=== PATIENT | female | born 1960 | race Caucasian/White ===

== ENCOUNTER 2020-12-31 13:41 | Inpatient (IN) | payer OTHER ==
--- OUTSIDE RECORDS SUMMARY | 2020-12-31 13:46 | XMS REPORT | Continuity of Care Document ---
:1960 Author Organization [facility] t Address [address] [place] [address] Care Team Providers Name Role Phone Iam Ruano Primary Care Physician ALFRED TRINIDAD Attending Clinician Unavailable ALFRED TRINIDAD Admitting Clinician Unavailable Payers Payer Name Policy Type Policy Number Effective Date Expiration Date S ource Problems Condition Condition Condition Status Onset Resolution Last Treating Co mments Source Name Details Category Date Date Treatment Clinician Date Pneumonia Pneumonia Disease Active [facility] [address] 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 History of tobacco 2016-08-14 [facility] Smoking Status Start Date Stop Date Source Former smoker 2016-11-15 00:00:00 2016-11-15 00:00:[address] [facility] Medications Ordered Filled Start Stop Current Ordering Indication Dosage Frequency Signature Comments Components Source Medication Medication Date Date Medication? Clinician (SIG) Name Name pregabalin 2017 Yes 300mg Q.5D Take [address] (LYRICA) 6-24 mg by [facility] - 300 MG 16:31: mouth 2 Medical capsule 44 (two) Center times daily. traMADol 2017 Yes 50mg Take [address] (ULTRAM) 50 6-24 by mouth Luke s - mg tablet 16:31: every 8 Medic al 44 (eight) Center hours as needed for Pain. acetaminoph 2017 Yes 1{tbl} Take [address] en-codeine 6-24 tablet by Luke [facility] - (TYLENOL 16:31: mouth Medical #3) 300-30 44 every 6 Center mg per (six) tablet hours as needed for Pain. Dolutegravi Yes 50mg QD Take [address] [facility] (TIVICAY) 6-24 by mouth Luke s - 50 mg Tab 16:31: nightly. Medi thad 44 Center darunavir-c Yes QD Take by [facility] obicistat 6-24 [facility] - (PREZCOBIX) 16:31: nightly. Mt dical 800-150 44 Center mg-mg Tab tiotropium Yes 18ug QD Inhale [address] (SPIRIVA) 6-24 mcg by [facility] - 18 mcg 16:31: mouth via Medica l inhalation 44 inhaler Center capsule daily. albuterol-i Yes 2{puff} Q.5D Inhale [address] pratropium 6-24 puffs by [facility] - (COMBIVENT 16:31: mouth via Me dical RESPIMAT) 44 inhaler 2 Cente r 20-100 (two) mcg/actuati times on Mist daily. inhaler eluxadoline 2017 Yes 100mg QD Take [address] (VIBERZI) 6-24 mg by [facility] - 100 mg Tab 16:31: mouth Medica l 44 daily. Center citalopram Yes 40mg QD Take [address] (CELEXA) 40 6-24 by mouth Luke s - MG tablet 16:31: nightly. Medi thad 44 Center emtricita 2017-0 Yes QD Take by [facility] ne-tenofovi 6-24 mouth [facility] - r alafen 16:31: nightly. Medic al (DESCOVY) 44 Center 200-25 mg Tab Procedures This patient has no known procedures. Results Test Description Test Time Test Comments Results Result Comments Source BASIC METABOLIC PANEL 2020-02-20 08:06:00 Test Item Value Reference Range Interpretation Comme nts SODIUM (test code = NA) 138 MMOL/L 137-145 N POTASSIUM (test code = K) 3.5 MMOL/L 3.5-5.1 N CHLORIDE (test code = CL) 96 MMOL/L 98-107 L CARBON DIOXIDE (test code = CO2) 35 MMOL/L 22-30 H ANION GAP (test code = GAP) 11 MMOL/L 14-24 L GLUCOSE (test code = GLU) 86 MG/DL 74-106 N BLOOD UREA NITROGEN (test code = 69 MG/DL 7-17 H BUN) GLOMERULAR FILTRATION RATE (test 15 Reporting units: ml/min/1.73 code = GFR) m2 (Modified M DRD Formula)Referen ce Range: > or = 60 ml/min/1.7 3 m2 CREATININE (test code = CREAT) 3.20 MG/DL 0.52-1.04 H CALCIUM (test code = CA) 8.5 MG/DL 8.4-10.2 N BASIC METABOLIC [id number] 07:59:00 Test Item Value Reference Range Interpretation Comments SODIUM (test code = NA) 138 MMOL/L 137-145 N POTASSIUM (test code = K) 3.5 MMOL/L 3.5-5.1 N CHLORIDE (test code = CL) 96 MMOL/L 98-107 L CARBON DIOXIDE (test code = CO2) MMOL/L 22-30 GLUCOSE (test code = GLU) MG/DL 74-106 BLOOD UREA NITROGEN (test code = MG/DL 7-17 BUN) GLOMERULAR FILTRATION RATE (test code = GFR) CREATININE (test code = CREAT) MG/DL 0.52-1.04 CALCIUM (test code = CA) MG/DL 8.7-9.7 BASIC METABOLIC [id number] 07:58:00 Test Item Value Reference Range Interpretation Comments SODIUM (test code = NA) 138 MMOL/L 137-145 N POTASSIUM (test code = K) MMOL/L 3.5-5.1 CHLORIDE (test code = CL) 96 MMOL/L 98-107 L CARBON DIOXIDE (test code = CO2) MMOL/L 22-30 GLUCOSE (test code = GLU) MG/DL 74-106 BLOOD UREA NITROGEN (test code = MG/DL 7-17 BUN) GLOMERULAR FILTRATION RATE (test code = GFR) CREATININE (test code = CREAT) MG/DL 0.52-1.04 CALCIUM (test code = CA) MG/DL 8.7-9.7 [id number] 15:18:00 Test Item Value Reference Range Interpretation Comments POTASSIUM (test code = K) 3.5 MMOL/L 3.5-5.1 N BASIC METABOLIC [id number] 07:32:00 Test Item Value Reference Range Interpretation Comments SODIUM (test code = 140 MMOL/L 137-145 N NA) POTASSIUM (test code = 3.2 MMOL/L 3.5-5.1 L K) CHLORIDE (test code = 97 MMOL/L 98-107 L CL) CARBON DIOXIDE (test 36 MMOL/L 22-30 H code = CO2) ANION GAP (test code = 10 MMOL/L 14-24 L GAP) GLUCOSE (test code = 86 MG/DL 74-106 GLU) BLOOD UREA NITROGEN 77 MG/DL 7-17 H (test code = BUN) GLOMERULAR FILTRATION 13 Report ing units: RATE (test code = GFR) ml/mi n/1.73 m2 (Modified MDRD Formula)Referen ce Range: > or = 6 0 ml/min/1.73 m2 CREATININE (test code 3.70 MG/DL 0.52-1.04 H = CREAT) CALCIUM (test code = 8.5 MG/DL 8.4-10.2 N CA) BASIC METABOLIC [id number] 07:25:00 Test Item Value Reference Range Interpretation Comments SODIUM (test code = NA) 140 MMOL/L 137-145 N POTASSIUM (test code = K) 3.2 MMOL/L 3.5-5.1 L CHLORIDE (test code = CL) 97 MMOL/L 98-107 L CARBON DIOXIDE (test code = CO2) MMOL/L 22-30 GLUCOSE (test code = GLU) MG/DL 74-106 BLOOD UREA NITROGEN (test code = MG/DL 7-17 BUN) GLOMERULAR FILTRATION RATE (test code = GFR) CREATININE (test code = CREAT) MG/DL 0.52-1.04 CALCIUM (test code = CA) MG/DL 8.7-9.7 BASIC METABOLIC [id number] 07:24:00 Test Item Value Reference Range Interpretation Comments SODIUM (test code = NA) MMOL/L 137-145 POTASSIUM (test code = K) MMOL/L 3.5-5.1 CHLORIDE (test code = CL) 97 MMOL/L 98-107 L CARBON DIOXIDE (test code = CO2) MMOL/L 22-30 GLUCOSE (test code = GLU) MG/DL 74-106 BLOOD UREA NITROGEN (test code = MG/DL 7-17 BUN) GLOMERULAR FILTRATION RATE (test code = GFR) CREATININE (test code = CREAT) MG/DL 0.52-1.04 CALCIUM (test code = CA) MG/DL 8.7-9.7 ARTERIAL BLOOD [id number] 16:01:00 Test Item Value Reference Range Interpretation Comments ARTERIAL BLOOD GAS PH 7.44 mmHg 7.35-7.45 N (test code = PHA) ARTERIAL BLOOD GAS PCO2 50.4 mmHg 35.0-45.0 HH (test code = PCO2A) ARTERIAL BLOOD GAS PO2 58.3 mmol/L 80.0-100.0 L (test code = PO2A) BICARBONATE TOTAL HCO3 33.3 mmol/L 20.0-26.0 H (test code = HCO3) BASE EXCESS (test code 7.6 mmol/L -3.0-3.0 H = JOSÉ) ABG O2 SATURATION (test 90.8 % 95.0-100.0 L All critical values code = SATA) report to and readback by DR. ARAUJO by GRACIA DUPONT at 02/18/2020 4:00:15 PM ABG DELIVERY (test code RM AIR = NANDINI) ABG TEMPERATURE (test 37.0 C >37 code = TEMPA) ABG SITE (test code = LR SITEA) ALLENS TEST (test code Y CHECK = ALLENS) FIO2 (test code = 21 % COHBGFFIO2) - CT CHEST W/O [id number] 15:30:00 Patient Name: ROBERT MATHEWS Unit No: [id number] EXAMS: CPT CODE: [id number] CT CHEST W/O CONTRAST 60228 EXAM: - CT CHEST W/O CONTRAST LOCATION: C3 HISTORY: pna TECHNIQUE: Axial tomograms through the chest were obtained without intravenous contrast. Coronal and sagittal reformatted images are provided. This exam was performed according to our departmental dose-optimization program, which includes automated exposure control, adjustment of the mA and/or kV according to patient size and/or use of iterative reconstruction technique. COMPARISON: None available time of interpretation. FINDINGS: LUNGS/PLEURA: Scattered areas of subsegmental atelectasis noted. No effusions. MEDIASTINUM: There is no pericardial effusion. The aorta tapers normally. The trachea is unremarkable. The esophagus is grossly unremarkable. LYMPHADENOPATHY: There is no mediastinal, hilar, or axillary adenopathy. VISUALIZED ABDOMEN: Unremarkable. BONES: No acute osseous findings. SOFT TISSUES: Unremarkable. IMPRESSION: No pneumonia. Scattered areas of subpleural subsegmental atelectasis. at 1530 Reported and signed by: Bertrand Taylor MD CC: Lian Araujo MD; Rey Benjamin MD Technologist: Cosme Roth RT(R) CTDI: DLP: Trnscrpt: 02/18/2020 (1530) t.[id number].[id number] [facility] NAME: ROBERT MATHEWS Chavez PHYS: [place] [address] : 1960 AGE: 59 SEX: F LOC: Z.436 A PHONE #: [phone] EXAM DATE: 02/18/2020 STATUS: ADM IN FAX #: [phone] RAD #: D/C DT PAGE 1 Signed Report Patient Name: ROBERT MATHEWS Unit No: [id number] EXAMS: CPT CODE: [id number] CT CHEST W/O CONTRAST 20112 <Continued> Orig Print D/T: S: 02/18/2020 (5404) [facility] NAME: ROBERT MATHEWS PHYS: [place] [address] : 1960 AGE: 59 SEX: F LOC: Z.436 A PHONE #: [phone] EXAM DATE: 02/18/2020 STATUS: ADM IN FAX #: [phone] RAD #: D/C DT PAGE 2 Signed ReportBASIC METABOLIC [id number] 14:22:00 Test Item Value Reference Range Interpretation Comments SODIUM (test code = 139 MMOL/L 137-145 N NA) POTASSIUM (test code = 3.8 MMOL/L 3.5-5.1 N K) CHLORIDE (test code = 98 MMOL/L 98-107 N CL) CARBON DIOXIDE (test 32 MMOL/L 22-30 H code = CO2) ANION GAP (test code = 13 MMOL/L 14-24 L GAP) GLUCOSE (test code = 104 MG/DL 74-106 GLU) BLOOD UREA NITROGEN 80 MG/DL 7-17 H (test code = BUN) GLOMERULAR FILTRATION 12 Report ing units: RATE (test code = GFR) ml/mi n/1.73 m2 (Modified MDRD Formula)Referen ce Range: > or = 6 0 ml/min/1.73 m2 CREATININE (test code 3.80 MG/DL 0.52-1.04 H = CREAT) CALCIUM (test code = 8.3 MG/DL 8.4-10.2 L CA) BASIC METABOLIC [id number] 14:19:00 Test Item Value Reference Range Interpretation Comments SODIUM (test code = NA) 139 MMOL/L 137-145 N POTASSIUM (test code = K) 3.8 MMOL/L 3.5-5.1 N CHLORIDE (test code = CL) 98 MMOL/L 98-107 N CARBON DIOXIDE (test code = CO2) MMOL/L 22-30 GLUCOSE (test code = GLU) MG/DL 74-106 BLOOD UREA NITROGEN (test code = MG/DL 7-17 BUN) GLOMERULAR FILTRATION RATE (test code = GFR) CREATININE (test code = CREAT) MG/DL 0.52-1.04 CALCIUM (test code = CA) MG/DL 8.7-9.7 BASIC METABOLIC [id number] 14:18:00 Test Item Value Reference Range Interpretation Comments SODIUM (test code = NA) MMOL/L 137-145 POTASSIUM (test code = K) MMOL/L 3.5-5.1 CHLORIDE (test code = CL) 98 MMOL/L 98-107 N CARBON DIOXIDE (test code = CO2) MMOL/L 22-30 GLUCOSE (test code = GLU) MG/DL 74-106 BLOOD UREA NITROGEN (test code = MG/DL 7-17 BUN) GLOMERULAR FILTRATION RATE (test code = GFR) CREATININE (test code = CREAT) MG/DL 0.52-1.04 CALCIUM (test code = CA) MG/DL 8.7-9.7 BASIC METABOLIC [id number] 08:14:00 Test Item Value Reference Range Interpretation Comments SODIUM (test code = 138 MMOL/L 137-145 N NA) POTASSIUM (test code = 2.8 MMOL/L 3.5-5.1 LL NELY D TO Ghassan Pettit) Ufarcia& READBA CK ON 02/18/20 AT 081 4 BY Toribio De Leon CHLORIDE (test code = 96 MMOL/L 98-107 L CL) CARBON DIOXIDE (test 32 MMOL/L 22-30 H code = CO2) ANION GAP (test code = 13 MMOL/L 14-24 L GAP) GLUCOSE (test code = 83 MG/DL 74-106 N GLU) BLOOD UREA NITROGEN 84 MG/DL 7-17 H (test code = BUN) GLOMERULAR FILTRATION 12 Report ing units: RATE (test code = GFR) ml/mi n/1.73 m2 (Modified MDRD Formula)Referen ce Range: > or = 6 0 ml/min/1.73 m2 CREATININE (test code 3.80 MG/DL 0.52-1.04 H = CREAT) CALCIUM (test code = 8.3 MG/DL 8.4-10.2 L CA) CBC W/AUTO [id number] 07:23:00 Test Item Value Reference Range Interpretation Comments WHITE BLOOD CELL (test code = 4.0 K/MM3 3.8-9.8 N WBC) RED BLOOD CELL (test code = 3.59 M/MM3 3.58-4.97 N RBC) HEMOGLOBIN (test code = HGB) 10.7 G/DL 11.2-14.9 L HEMATOCRIT (test code = HCT) 34.6 % 33.2-43.5 N MEAN CELL VOLUME (test code = 96 fL 80.7-99.1 N MCV) MEAN CELL HGB (test code = MCH) 29.8 pg 27.0-34.1 N MEAN CELL HGB CONCETRATION 30.9 % 32.2-35.7 L (test code = MCHC) RED CELL DISTRIBUTION WIDTH 15.0 % 12.1-15.2 N (test code = RDW) PLATELET COUNT (test code = 92 K/MM3 129-368 L PLT) MEAN PLATELET VOLUME (test code 12.8 fl 7.4-10.4 H = MPV) NEUTROPHIL % (test code = NT%) 56.8 % 43-75 N IMMATURE GRANULOCYTE % (test 0.3 % 0.0-2.0 N code = IG%) LYMPHOCYTE % (test code = LY%) 26.1 % 14-44 N MONOCYTE % (test code = MO%) 10.0 % 4-13 N EOSINOPHIL % (test code = EO%) 6.0 % 0-6 N BASOPHIL % (test code = BA%) 0.8 % 0-2 N NUCLEATED RBC % (test code = 0.0 % 0-1.0 N NRBC%) NEUTROPHIL # (test code = NT#) 2.27 K/mm3 2.0-7.6 N IMMATURE GRANULOCYTE # (test 0.01 x10 3/uL 0-0.03 N code = IG#) LYMPHOCYTE # (test code = LY#) 1.04 K/mm3 1.0-3.8 N MONOCYTE # (test code = MO#) 0.40 K/mm3 0.1-0.8 N EOSINOPHIL # (test code = EO#) 0.24 K/mm3 0.0-0.2 H BASOPHIL # (test code = BA#) 0.03 K/mm3 0.0-0.2 N NUCLEATED RBC # (test code = 0.00 K/mm3 0.0-0.1 N NRBC#) BASIC METABOLIC [id number] 06:25:00 Test Item Value Reference Range Interpretation Comments SODIUM (test code = 139 MMOL/L 137-145 N NA) POTASSIUM (test code = 3.5 MMOL/L 3.5-5.1 N K) CHLORIDE (test code = 98 MMOL/L 98-107 N CL) CARBON DIOXIDE (test 34 MMOL/L 22-30 H code = CO2) ANION GAP (test code = 11 MMOL/L 14-24 L GAP) GLUCOSE (test code = 90 MG/DL 74-106 N GLU) BLOOD UREA NITROGEN 85 MG/DL 7-17 H (test code = BUN) GLOMERULAR FILTRATION 10 Report ing units: RATE (test code = GFR) ml/mi n/1.73 m2 (Modified MDRD Formula)Referen ce Range: > or = 6 0 ml/min/1.73 m2 CREATININE (test code 4.50 MG/DL 0.52-1.04 H = CREAT) CALCIUM (test code = 8.1 MG/DL 8.4-10.2 L CA) BASIC METABOLIC [id number] 06:20:00 Test Item Value Reference Range Interpretation Comments SODIUM (test code = NA) 139 MMOL/L 137-145 N POTASSIUM (test code = K) 3.5 MMOL/L 3.5-5.1 N CHLORIDE (test code = CL) 98 MMOL/L 98-107 N CARBON DIOXIDE (test code = CO2) MMOL/L 22-30 GLUCOSE (test code = GLU) MG/DL 74-106 BLOOD UREA NITROGEN (test code = MG/DL 7-17 BUN) GLOMERULAR FILTRATION RATE (test code = GFR) CREATININE (test code = CREAT) MG/DL 0.52-1.04 CALCIUM (test code = CA) MG/DL 8.7-9.7 VENOUS BLOOD [id number] 11:44:00 Test Item Value Reference Range Interpretation Comments VENOUS BLOOD GAS PH (test code = 7.29 7.35-7.45 L PHV) VENOUS BLOOD GAS PCO2 (test code = 65.4 mmHg 35.0-45.0 HH PCO2V) VENOUS BLOOD GAS PO2 (test code = 68 mmHg <40 H PO2V) VBG HCO3 (test code = HCO3V) 31 meq/L 20-26 H VBG BASE EXCESS (test code = LIEN) 1.9 MMOL/L -3.0-3.0 N VENOUS BLOOD GAS OS SAT. (test 91 % 72-77 H code = O2SATV) VENOUS BLOOD GAS DELIVERY (test N/C code = DELV) VENOUS BLOOD GAS TEMP (test code = 37.0 C TEMPV) VENOUS BLOOD GAS SITE (test code = RB SITEV) FIO2 (test code = COHBGFFIO2) 28 % VENOUS BLOOD [id number] 08:29:00 Test Item Value Reference Range Interpretation Comments VENOUS BLOOD GAS PH (test code = 7.26 7.35-7.45 L PHV) VENOUS BLOOD GAS PCO2 (test code = 68.7 mmHg 35.0-45.0 HH PCO2V) VENOUS BLOOD GAS PO2 (test code = 64 mmHg <40 H PO2V) VBG HCO3 (test code = HCO3V) 30 meq/L 20-26 H VBG BASE EXCESS (test code = LIEN) 1.0 MMOL/L -3.0-3.0 N VENOUS BLOOD GAS OS SAT. (test 89 % 72-77 H code = O2SATV) VENOUS BLOOD GAS DELIVERY (test BIPAP code = DELV) VBG VENT MODE (test code = MODEV) AVAPS ZAIDA. BLOOD GAS RESP. RATE (test 24.0 /min code = RRV) VBG TIDAL VOLUME (test code = TVV) 440 mL VENOUS BLOOD GAS TEMP (test code = 37.0 C TEMPV) VENOUS BLOOD GAS SITE (test code = LINE SITEV) FIO2 (test code = COHBGFFIO2) 21 % - US RETROPERITONEAL [id number] 07:56:00 Patient Name: ROBERT MATHEWS Unit No: [id number] EXAMS: CPT CODE: [id number] US RETROPERITONEAL COM [id number] EXAM: - US RETROPERITONEAL COM HISTORY: HYPERKALEMIA/ RENAL DISEASE R 16 TECHNIQUE: Grayscale B-mode and color Doppler sonographic images of the kidneys were performed. Dedicated grayscale B-mode and color Doppler pelvic imaging of the urinary bladder was also performed. COMPARISON: None available time of inter pretation. FINDINGS: Limited evaluation due to patient body habitus and overlying bowel gas. The right kidney measures 10.3cm and the left measures 11.6 cm in length. There is no obvious cystic or solid renal mass lesion visualized. No h ydronephrosis or obvious nephrolithiasis. There is normal renal cortical thickness. Minimallyincreased cortical echogenicity. The urinary bladder volume is decompressed by Burrows catheterization, thus limiting evaluation. IMPRESSION: Limited evaluation due to patient body habitus and overlying bowel gas. 1. No evidence of hydronephrosis, nephrolithiasis or suspicious renal mass. 2. Minimally increased cortical echogenicity, suggestive of intrinsic renal parenchymal disease. at 0756 Reported and signed by: Apoorva Mckeon MD CC: Christian Espino MD; Troy Randall Technologist: DALI Early(A,OB) Transcrpt Date/Tm/Trnsp: 02/16/2020 (0756) [id number] Orig Print D/T: S: 02/16/2020 (0759) [facility] NAME: ROBERT MATHEWS [address] PHYS: [place] [address] : 1960 AGE: 59 SEX: F LOC: Z.SI09 A PHONE #: [phone] EXAM DATE: 02/15/2020 STATUS: ADM IN FAX #: [phone] RADIOLOGY NO: PAGE 1Signed ReportBASIC METABOLIC [id number] 07:37:00 Test Item Value Reference Range Interpretation Comments SODIUM (test code = 139 MMOL/L 137-145 N NA) POTASSIUM (test code = 4.2 MMOL/L 3.5-5.1 N K) CHLORIDE (test code = 98 MMOL/L 98-107 N CL) CARBON DIOXIDE (test 31 MMOL/L 22-30 H code = CO2) ANION GAP (test code = 14 MMOL/L 14-24 N GAP) GLUCOSE (test code = 81 MG/DL 74-106 GLU) BLOOD UREA NITROGEN 93 MG/DL 7-17 H (test code = BUN) GLOMERULAR FILTRATION 7 Report ing units: RATE (test code = GFR) ml/mi n/1.73 m2 (Modified MDRD Formula)Referen ce Range: > or = 6 0 ml/min/1.73 m2 CREATININE (test code 5.90 MG/DL 0.52-1.04 H = CREAT) CALCIUM (test code = 7.5 MG/DL 8.4-10.2 L CA) [id number] 07:37:00 Test Item Value Reference Range Interpretation Comments MAGNESIUM (test code = MAG) 2.6 MG/DL 1.6-2.3 H BASIC METABOLIC [id number] 07:06:00 Test Item Value Reference Range Interpretation Comments SODIUM (test code = NA) 139 MMOL/L 137-145 N POTASSIUM (test code = K) 4.2 MMOL/L 3.5-5.1 N CHLORIDE (test code = CL) 98 MMOL/L 98-107 N CARBON DIOXIDE (test code = CO2) MMOL/L 22-30 GLUCOSE (test code = GLU) MG/DL 74-106 BLOOD UREA NITROGEN (test code = MG/DL 7-17 BUN) GLOMERULAR FILTRATION RATE (test code = GFR) CREATININE (test code = CREAT) MG/DL 0.52-1.04 CALCIUM (test code = CA) MG/DL 8.7-9.7 [id number] 07:06:00 Test Item Value Reference Range Interpretation Comments MAGNESIUM (test code = MAG) MG/DL 1.6-2.3 COMPREHENSIVE METABOLIC [id number] 18:24:00 Test Item Value Reference Range Interpretation Comments SODIUM (test code = NA) 140 MMOL/L 137-145 N POTASSIUM (test code = 4.8 MMOL/L 3.5-5.1 N K) CHLORIDE (test code = 99 MMOL/L 98-107 N CL) CARBON DIOXIDE (test 32 MMOL/L 22-30 H code = CO2) ANION GAP (test code = 14 MMOL/L 14-24 N GAP) GLUCOSE (test code = 121 MG/DL 74-106 H GLU) BLOOD UREA NITROGEN 88 MG/DL 7-17 H (test code = BUN) GLOMERULAR FILTRATION 7 Report ing units: RATE (test code = GFR) ml/mi n/1.73 m2 (Modified MDRD Formula)Referen ce Range: > or = 6 0 ml/min/1.73 m2 CREATININE (test code = 6.30 MG/DL 0.52-1.04 H CREAT) TOTAL PROTEIN (test 6.6 G/DL 6.3-8.2 N code = PROT) ALBUMIN (test code = 3.9 G/DL 3.5-5.0 N ALB) CALCIUM (test code = 7.8 MG/DL 8.4-10.2 L CA) BILIRUBIN TOTAL (test 0.4 MG/DL 0.2-1.3 N code = BILT) SGOT/AST (test code = 53 UNITS/L 14-36 H AST) SGPT/ALT (test code = 31 UNITS/L <35 ALT) ALKALINE PHOSPHATASE 72 UNITS/L 38-126 N (test code = ALKP) [id number] 18:24:00 Test Item Value Reference Range Interpretation Comments MAGNESIUM (test code = MAG) 2.7 MG/DL 1.6-2.3 H COMPREHENSIVE METABOLIC [id number] 18:13:00 Test Item Value Reference Range Interpretation Comments SODIUM (test code = NA) 140 MMOL/L 137-145 N POTASSIUM (test code = K) 4.8 MMOL/L 3.5-5.1 N CHLORIDE (test code = CL) 99 MMOL/L 98-107 N CARBON DIOXIDE (test code = CO2) MMOL/L 22-30 GLUCOSE (test code = GLU) MG/DL 74-106 BLOOD UREA NITROGEN (test code = MG/DL 7-17 BUN) GLOMERULAR FILTRATION RATE (test code = GFR) CREATININE (test code = CREAT) MG/DL 0.52-1.04 TOTAL PROTEIN (test code = PROT) G/DL 6.3-8.2 ALBUMIN (test code = ALB) 3.9 G/DL 3.5-5.0 N CALCIUM (test code = CA) MG/DL 8.7-9.7 BILIRUBIN TOTAL (test code = BILT) MG/DL 0.2-1.3 SGOT/AST (test code = AST) UNITS/L 15-37 SGPT/ALT (test code = ALT) UNITS/L <35 ALKALINE PHOSPHATASE (test code = UNITS/L 38-126 ALKP) [id number] 18:13:00 Test Item Value Reference Range Interpretation Comments MAGNESIUM (test code = MAG) MG/DL 1.6-2.3 COMPREHENSIVE METABOLIC [id number] 18:12:00 Test Item Value Reference Range Interpretation Comments SODIUM (test code = NA) MMOL/L 137-145 POTASSIUM (test code = K) MMOL/L 3.5-5.1 CHLORIDE (test code = CL) 99 MMOL/L 98-107 N CARBON DIOXIDE (test code = CO2) MMOL/L 22-30 GLUCOSE (test code = GLU) MG/DL 74-106 BLOOD UREA NITROGEN (test code = MG/DL 7-17 BUN) GLOMERULAR FILTRATION RATE (test code = GFR) CREATININE (test code = CREAT) MG/DL 0.52-1.04 TOTAL PROTEIN (test code = PROT) G/DL 6.3-8.2 ALBUMIN (test code = ALB) 3.9 G/DL 3.5-5.0 N CALCIUM (test code = CA) MG/DL 8.7-9.7 BILIRUBIN TOTAL (test code = BILT) MG/DL 0.2-1.3 SGOT/AST (test code = AST) UNITS/L 15-37 SGPT/ALT (test code = ALT) UNITS/L <35 ALKALINE PHOSPHATASE (test code = UNITS/L 38-126 ALKP) [id number] 18:12:00 Test Item Value Reference Range Interpretation Comments MAGNESIUM (test code = MAG) MG/DL 1.6-2.3 VENOUS BLOOD [id number] 17:48:00 Test Item Value Reference Range Interpretation Comments VENOUS BLOOD GAS PH (test code = 7.26 7.35-7.45 L PHV) VENOUS BLOOD GAS PCO2 (test code = 68.7 mmHg 35.0-45.0 HH PCO2V) VENOUS BLOOD GAS PO2 (test code = 64 mmHg <40 H PO2V) VBG HCO3 (test code = HCO3V) 30 meq/L 20-26 H VBG BASE EXCESS (test code = LIEN) 1.0 MMOL/L -3.0-3.0 N VENOUS BLOOD GAS OS SAT. (test 89 % 72-77 H code = O2SATV) VENOUS BLOOD GAS DELIVERY (test BIPAP code = DELV) ZAIDA. BLOOD GAS RESP. RATE (test 24.0 /min code = RRV) VBG TIDAL VOLUME (test code = TVV) 440 mL VENOUS BLOOD GAS TEMP (test code = 37.0 C TEMPV) VENOUS BLOOD GAS SITE (test code = LINE SITEV) FIO2 (test code = COHBGFFIO2) 21 % COMPREHENSIVE METABOLIC [id number] 15:16:00 Test Item Value Reference Range Interpretation Comments SODIUM (test code = NA) 141 MMOL/L 137-145 N POTASSIUM (test code = 5.4 MMOL/L 3.5-5.1 H K) CHLORIDE (test code = 102 MMOL/L 98-107 N CL) CARBON DIOXIDE (test 26 MMOL/L 22-30 N code = CO2) ANION GAP (test code = 18 MMOL/L 14-24 N GAP) GLUCOSE (test code = 59 MG/DL 74-106 L GLU) BLOOD UREA NITROGEN 94 MG/DL 7-17 H (test code = BUN) GLOMERULAR FILTRATION 7 Report ing units: RATE (test code = GFR) ml/mi n/1.73 m2 (Modified MDRD Formula)Referen ce Range: > or = 6 0 ml/min/1.73 m2 CREATININE (test code = 6.50 MG/DL 0.52-1.04 H CREAT) TOTAL PROTEIN (test 7.0 G/DL 6.3-8.2 N code = PROT) ALBUMIN (test code = 4.1 G/DL 3.5-5.0 N ALB) CALCIUM (test code = 8.2 MG/DL 8.4-10.2 L CA) BILIRUBIN TOTAL (test 0.4 MG/DL 0.2-1.3 N code = BILT) SGOT/AST (test code = 66 UNITS/L 14-36 H AST) SGPT/ALT (test code = 38 UNITS/L <35 ALT) ALKALINE PHOSPHATASE 80 UNITS/L 38-126 N (test code = ALKP) COMPREHENSIVE METABOLIC [id number] 15:09:00 Test Item Value Reference Range Interpretation Comments SODIUM (test code = NA) 141 MMOL/L 137-145 N POTASSIUM (test code = K) 5.4 MMOL/L 3.5-5.1 H CHLORIDE (test code = CL) 102 MMOL/L 98-107 N CARBON DIOXIDE (test code = CO2) MMOL/L 22-30 GLUCOSE (test code = GLU) MG/DL 74-106 BLOOD UREA NITROGEN (test code = MG/DL 7-17 BUN) GLOMERULAR FILTRATION RATE (test code = GFR) CREATININE (test code = CREAT) MG/DL 0.52-1.04 TOTAL PROTEIN (test code = PROT) G/DL 6.3-8.2 ALBUMIN (test code = ALB) 4.1 G/DL 3.5-5.0 N CALCIUM (test code = CA) MG/DL 8.7-9.7 BILIRUBIN TOTAL (test code = BILT) MG/DL 0.2-1.3 SGOT/AST (test code = AST) UNITS/L 15-37 SGPT/ALT (test code = ALT) UNITS/L <35 ALKALINE PHOSPHATASE (test code = UNITS/L 38-126 ALKP) COMPREHENSIVE METABOLIC [id number] 15:08:00 Test Item Value Reference Range Interpretation Comments SODIUM (test code = NA) MMOL/L 137-145 POTASSIUM (test code = K) MMOL/L 3.5-5.1 CHLORIDE (test code = CL) MMOL/L 98-107 CARBON DIOXIDE (test code = CO2) MMOL/L 22-30 GLUCOSE (test code = GLU) MG/DL 74-106 BLOOD UREA NITROGEN (test code = MG/DL 7-17 BUN) GLOMERULAR FILTRATION RATE (test code = GFR) CREATININE (test code = CREAT) MG/DL 0.52-1.04 TOTAL PROTEIN (test code = PROT) G/DL 6.3-8.2 ALBUMIN (test code = ALB) 4.1 G/DL 3.5-5.0 N CALCIUM (test code = CA) MG/DL 8.7-9.7 BILIRUBIN TOTAL (test code = BILT) MG/DL 0.2-1.3 SGOT/AST (test code = AST) UNITS/L 15-37 SGPT/ALT (test code = ALT) UNITS/L <35 ALKALINE PHOSPHATASE (test code = UNITS/L 38-126 ALKP) ARTERIAL BLOOD [id number] 15:00:00 Test Item Value Reference Range Interpretation Comments ARTERIAL BLOOD GAS PH 7.20 mmHg 7.35-7.45 LL (test code = PHA) ARTERIAL BLOOD GAS PCO2 79.7 mmHg 35.0-45.0 HH (test code = PCO2A) ARTERIAL BLOOD GAS PO2 82.6 mmol/L 80.0-100.0 N (test code = PO2A) BICARBONATE TOTAL HCO3 30.1 mmol/L 20.0-26.0 H (test code = HCO3) BASE EXCESS (test code -0.5 mmol/L -3.0-3.0 N = JOSÉ) ABG O2 SATURATION (test 93.1 % 95.0-100.0 L All critical values code = SATA) report to and readback by DR GARCIA by MARIE CH57 at 02/15/2020 3:00:14 PM ABG DELIVERY (test code BIPAP = NANDINI) ABG VENT RESP RATE 24.0 /MIN (test code = RRA) ABG PEEP (test code = 10.0 cmH2O PEEPA) ABG PRESSURE SUPPORT 20 cmH2O (test code = PSABG) ABG TEMPERATURE (test 37.0 C >37 code = TEMPA) ABG SITE (test code = RR SITEA) ALLENS TEST (test code Y CHECK = ALLENS) FIO2 (test code = 28 % COHBGFFIO2) DRUGS OF ABUSE SCREEN [id number] 10:11:00 Test Item Value Reference Range Interpretation Comments UR COCAINE (test code = NEGATIVE NEGATIVE Cut off Value: 300 COCAU) ng/mL UR CANNABINOIDS (THC) NEGATIVE NEGATIVE Cut of f Value: 50 (test code = CANU) ng/mL UR AMPHETAMINE (test code NEGATIVE NEGATIVE Cu t off Value: 1000 = AMPHU) ng/mL UR BARBITURATE QUAL (test NEGATIVE NEGATIVE Cu t off Value: 200 code = BARBQLU) ng/mL UR BENZODIAZEPINE (test NEGATIVE NEGATIVE Cut off Value: 200 code = BENZU) ng/mL UR OPIATES QUAL (test code NEGATIVE NEGATIVE C ut off Value: 300 = OPIAQLU) ng/mL UR PHENCYCLIDINE (PCP) NEGATIVE NEGATIVE Cut o ff Value: 25 (test code = PHENCU) ng/mL DRUGS OF ABUSE SCREEN [id number] 10:10:00 Test Item Value Reference Range Interpretation Comments UR COCAINE (test code = NEGATIVE NEGATIVE Cut off Value: 300 COCAU) ng/mL UR CANNABINOIDS (THC) NEGATIVE NEGATIVE Cut of f Value: 50 (test code = CANU) ng/mL UR AMPHETAMINE (test code NEGATIVE NEGATIVE Cu t off Value: 1000 = AMPHU) ng/mL UR BARBITURATE QUAL (test NEGATIVE NEGATIVE Cu t off Value: 200 code = BARBQLU) ng/mL UR BENZODIAZEPINE (test NEGATIVE NEGATIVE Cut off Value: 200 code = BENZU) ng/mL UR OPIATES QUAL (test code NEGATIVE = OPIAQLU) UR PHENCYCLIDINE (PCP) NEGATIVE (test code = PHENCU) DRUGS OF ABUSE SCREEN [id number] 10:09:00 Test Item Value Reference Range Interpretation Comments UR COCAINE (test code = NEGATIVE COCAU) UR CANNABINOIDS (THC) NEGATIVE (test code = CANU) UR AMPHETAMINE (test code NEGATIVE NEGATIVE Cu t off Value: 1000 = AMPHU) ng/mL UR BARBITURATE QUAL (test NEGATIVE NEGATIVE Cu t off Value: 200 code = BARBQLU) ng/mL UR BENZODIAZEPINE (test NEGATIVE NEGATIVE Cut off Value: 200 code = BENZU) ng/mL UR OPIATES QUAL (test code NEGATIVE = OPIAQLU) UR PHENCYCLIDINE (PCP) NEGATIVE (test code = PHENCU) DRUGS OF ABUSE SCREEN [id number] 10:09:00 Test Item Value Reference Range Interpretation Comments UR COCAINE (test code = NEGATIVE COCAU) UR CANNABINOIDS (THC) NEGATIVE NEGATIVE Cut of f Value: 50 (test code = CANU) ng/mL UR AMPHETAMINE (test code NEGATIVE NEGATIVE Cu t off Value: 1000 = AMPHU) ng/mL UR BARBITURATE QUAL (test NEGATIVE NEGATIVE Cu t off Value: 200 code = BARBQLU) ng/mL UR BENZODIAZEPINE (test NEGATIVE NEGATIVE Cut off Value: 200 code = BENZU) ng/mL UR OPIATES QUAL (test code NEGATIVE = OPIAQLU) UR PHENCYCLIDINE (PCP) NEGATIVE (test code = PHENCU) DRUGS OF ABUSE SCREEN [id number] 10:08:00 Test Item Value Reference Range Interpretation Comments UR COCAINE (test code = NEGATIVE COCAU) UR CANNABINOIDS (THC) NEGATIVE (test code = CANU) UR AMPHETAMINE (test code NEGATIVE NEGATIVE Cu t off Value: 1000 = AMPHU) ng/mL UR BARBITURATE QUAL (test NEGATIVE NEGATIVE Cu t off Value: 200 code = BARBQLU) ng/mL UR BENZODIAZEPINE (test NEGATIVE code = BENZU) UR OPIATES QUAL (test code NEGATIVE = OPIAQLU) UR PHENCYCLIDINE (PCP) NEGATIVE (test code = PHENCU) [id number] 09:57:00 Test Item Value Reference Range Interpretation Comments MAGNESIUM (test code = MAG) 2.9 MG/DL 1.6-2.3 H ARTERIAL BLOOD [id number] 07:13:00 Test Item Value Reference Range Interpretation Comments ARTERIAL BLOOD GAS PH 7.15 mmHg 7.35-7.45 LL (test code = PHA) ARTERIAL BLOOD GAS PCO2 94.4 mmHg 35.0-45.0 HH (test code = PCO2A) ARTERIAL BLOOD GAS PO2 91.5 mmol/L 80.0-100.0 N (test code = PO2A) BICARBONATE TOTAL HCO3 31.9 mmol/L 20.0-26.0 H (test code = HCO3) BASE EXCESS (test code -0.2 mmol/L -3.0-3.0 N = JOSÉ) ABG O2 SATURATION (test 93.9 % 95.0-100.0 L All critical values code = SATA) report to and readback by DR LOPES by MARIECHMiguel at 02/15/2020 7:12: 29 AM ABG DELIVERY (test code BIPAP = NANDINI) ABG VENT RESP RATE 18.0 /MIN (test code = RRA) ABG PEEP (test code = 8.0 cmH2O PEEPA) ABG PRESSURE SUPPORT 16 cmH2O (test code = PSABG) ABG TEMPERATURE (test 37.0 C >37 code = TEMPA) ABG SITE (test code = RR SITEA) ALLENS TEST (test code Y CHECK = ALLENS) FIO2 (test code = 40 % COHBGFFIO2) BASIC METABOLIC [id number] 06:26:00 Test Item Value Reference Range Interpretation Comments SODIUM (test code = 138 MMOL/L 137-145 N NA) POTASSIUM (test code = 5.7 MMOL/L 3.5-5.1 H K) CHLORIDE (test code = 99 MMOL/L 98-107 N CL) CARBON DIOXIDE (test 31 MMOL/L 22-30 H code = CO2) ANION GAP (test code = 14 MMOL/L 14-24 N GAP) GLUCOSE (test code = 142 MG/DL 74-106 H GLU) BLOOD UREA NITROGEN 92 MG/DL 7-17 H (test code = BUN) GLOMERULAR FILTRATION 6 Report ing units: RATE (test code = GFR) ml/mi n/1.73 m2 (Modified MDRD Formula)Referen ce Range: > or = 6 0 ml/min/1.73 m2 CREATININE (test code 6.60 MG/DL 0.52-1.04 H = CREAT) CALCIUM (test code = 8.1 MG/DL 8.4-10.2 L CA) CREATINE KINASE (CK)2020-02-15 06:26:00 Test Item Value Reference Range Interpretation Comments CREATINE KINASE (CK) (test code = 47 UNITS/L 30-135 N CK) [id number] 06:26:00 Test Item Value Reference Range Interpretation Comments MAGNESIUM (test code = MAG) 2.9 MG/DL 1.6-2.3 H [id number] 06:26:00 Test Item Value Reference Range Interpretation Comments TROPONIN-I (test code = TROPI) 0.030 NG/ML 0.012-0.033 LIPID PROFILE (CORONARY RISK)2020-02-15 06:26:00 Test Item Value Reference Range Interpretation Comments TRIGLYCERIDES (test 47 MG/DL TRIGLYCE RIDES code = TRIG) REFERENCE RANGE:Normal: < 150 mg/dLBorderline High: 150-199 mg/dLHi gh: 200-499 mg/dLVe ry High: >=500 mg/ dL CHOLESTEROL (test code 116 MG/DL <200 = CHOL) HDL CHOLESTEROL (test 64 MG/DL 40-59 H code = HDL) LIPOPROTEIN LDL (test 36 MG/DL 0-99 N code = LDL) OPTIMAL........ .<100 mg/dLNEAR OPTIMAL/ABOVE OPTIMAL........ .100-12 9 mg/dL BORDERLINE HIGH.........13 0-159 mg/dL HIGH.........16 0-189 mg/dL VERY HIGH...... ...>/= 190 mg/dL GLYCOSYLATED HEMOGLOBIN [id number] 06:26:00 Test Item Value Reference Range Interpretation Comments GLYCOSYLATED 4.8 % 4.8-5.9 N Any condition t hat HEMOGLOBIN (HA1C) shortens e rythocyte (test code = GLYHGB) surviva l or decreasesmean erythrocyte age (e.g., recovery from a cute blood loss,hemolytic anemia) will falsely lo wer HGBA1c resultsregardle ss of the method used. H GBA1c results from [facility] HbSS, HbCC, and HbSc must be interpreted with cautiongiven th e pathological pr ocesses, including anemia,increase d red cell turnover, trans fusion requirements, thatadversely i mpact HGBA1c as a mar ker of long-term glycemiccontrol . Alternative for ms of testing such as fructosaminesho uld be considered for these patients. MEAN BLOOD GLUCOSE 91 MG/DL 70-110 N (test code = MBG) BASIC METABOLIC [id number] 06:21:00 Test Item Value Reference Range Interpretation Comments SODIUM (test code = 138 MMOL/L 137-145 N NA) POTASSIUM (test code = 5.7 MMOL/L 3.5-5.1 H K) CHLORIDE (test code = 99 MMOL/L 98-107 N CL) CARBON DIOXIDE (test 31 MMOL/L 22-30 H code = CO2) ANION GAP (test code = 14 MMOL/L 14-24 N GAP) GLUCOSE (test code = 142 MG/DL 74-106 H GLU) BLOOD UREA NITROGEN 92 MG/DL 7-17 H (test code = BUN) GLOMERULAR FILTRATION 6 Report ing units: RATE (test code = GFR) ml/mi n/1.73 m2 (Modified MDRD Formula)Referen ce Range: > or = 6 0 ml/min/1.73 m2 CREATININE (test code 6.60 MG/DL 0.52-1.04 H = CREAT) CALCIUM (test code = 8.1 MG/DL 8.4-10.2 L CA) CREATINE KINASE (CK)2020-02-15 06:21:00 Test Item Value Reference Range Interpretation Comments CREATINE KINASE (CK) (test code = 47 UNITS/L 30-135 N CK) [id number] 06:21:00 Test Item Value Reference Range Interpretation Comments MAGNESIUM (test code = MAG) 2.9 MG/DL 1.6-2.3 H [id number] 06:21:00 Test Item Value Reference Range Interpretation Comments TROPONIN-I (test code = TROPI) NG/ML 0.0-0.045 LIPID PROFILE (CORONARY RISK)2020-02-15 06:14:00 Test Item Value Reference Range Interpretation Comments TRIGLYCERIDES (test 47 MG/DL TRIGLYCE RIDES code = TRIG) REFERENCE RANGE:Normal: < 150 mg/dLBorderline High: 150-199 mg/dLHi gh: 200-499 mg/dLVe ry High: >=500 mg/ dL CHOLESTEROL (test code 116 MG/DL <200 = CHOL) HDL CHOLESTEROL (test 64 MG/DL 40-59 H code = HDL) LIPOPROTEIN LDL (test MG/DL 0-99 code = LDL) BASIC METABOLIC [id number] 06:12:00 Test Item Value Reference Range Interpretation Comments SODIUM (test code = NA) 138 MMOL/L 137-145 N POTASSIUM (test code = K) 5.7 MMOL/L 3.5-5.1 H CHLORIDE (test code = CL) 99 MMOL/L 98-107 N CARBON DIOXIDE (test code = CO2) MMOL/L 22-30 GLUCOSE (test code = GLU) MG/DL 74-106 BLOOD UREA NITROGEN (test code = MG/DL 7-17 BUN) GLOMERULAR FILTRATION RATE (test code = GFR) CREATININE (test code = CREAT) MG/DL 0.52-1.04 CALCIUM (test code = CA) MG/DL 8.7-9.7 CREATINE KINASE (CK)2020-02-15 06:12:00 Test Item Value Reference Range Interpretation Comments CREATINE KINASE (CK) (test code = UNITS/L 30-135 CK) [id number] 06:12:00 Test Item Value Reference Range Interpretation Comments MAGNESIUM (test code = MAG) MG/DL 1.6-2.3 [id number] 06:12:00 Test Item Value Reference Range Interpretation Comments TROPONIN-I (test code = TROPI) NG/ML 0.0-0.045 ARTERIAL BLOOD [id number] 05:34:00 Test Item Value Reference Range Interpretation Comments ARTERIAL BLOOD GAS PH 7.16 mmHg 7.35-7.45 LL (test code = PHA) ARTERIAL BLOOD GAS PCO2 84.4 mmHg 35.0-45.0 HH (test code = PCO2A) ARTERIAL BLOOD GAS PO2 76.3 mmol/L 80.0-100.0 L (test code = PO2A) BICARBONATE TOTAL HCO3 29.6 mmol/L 20.0-26.0 H (test code = HCO3) BASE EXCESS (test code -1.7 mmol/L -3.0-3.0 N = JOSÉ) ABG O2 SATURATION (test 90.6 % 95.0-100.0 L All critical values code = SATA) report to and readback by DR. LOPES by [email or web address] at 02/15/2020 5:33: 15 AM ABG L/M (test code = 4 L/MIN L/M) ABG DELIVERY (test code N/C = NANDINI) ABG TEMPERATURE (test 37.0 C >37 code = TEMPA) ABG SITE (test code = RR SITEA) ALLENS TEST (test code Y CHECK = ALLENS) FIO2 (test code = 36 % COHBGFFIO2) - PULM VENT PERF [id number] 03:57:00 Patient Name: ROBERT MATHEWS Unit No: [id number] EXAMS: CPT CODE: [id number] PULM VENT PERF IMAG 17207 STUDY: Ventilation perfusion scan INDICATION: Evaluate for pulmonary embolism Location: R16 TECHNIQUE: Approximately5.1 mCi of Tc-99m MAA were administered intravenously and multiple static images of the chest were obtained COMPARISON: Correlation is made with chest x-ray dated same day. FINDINGS: The perfusion images demonstrate heterogeneous uptake in both lungswith well visualized borders. No wedge shaped or otherwise segmental defects are noted. IMPRESSION: Ventilation and lung perfusion scan without segmental defects is low probability for pulmonary embolus. at 0357 Reported and signed by: Jose Wang CC: Mode Zimmerman MD Technologist: Sammy Long, RT(N) Transcrpt Date/Tm/Trnsp: 02/15/2020 (0357) [id number].[email or web address] Orig Print D/T: S: 02/15/2020 (0400) [facility] NAME: ROBERT MATHEWS [id number] PHYS: [address] [place] [address] : 1960 AGE: 59 SEX: F LOC: Z.I07 A PHONE #: [phone] EXAM DATE: 02/15/2020 STATUS: ADM IN FAX #: [phone] RADIOLOGY NO: PAGE 1 Signed ReportBASIC METABOLIC PANEL 2020-02-15 02:23:00 Test Item Value Reference Range Interpretation Comments SODIUM (test code = 138 MMOL/L 137-145 N NA) POTASSIUM (test code = 5.9 MMOL/L 3.5-5.1 H K) CHLORIDE (test code = 102 MMOL/L 98-107 N CL) CARBON DIOXIDE (test 26 MMOL/L 22-30 N code = CO2) ANION GAP (test code = 16 MMOL/L 14-24 N GAP) GLUCOSE (test code = 78 MG/DL 74-106 N GLU) BLOOD UREA NITROGEN 95 MG/DL 7-17 H (test code = BUN) GLOMERULAR FILTRATION 7 Report ing units: RATE (test code = GFR) ml/mi n/1.73 m2 (Modified MDRD Formula)Referen ce Range: > or = 6 0 ml/min/1.73 m2 CREATININE (test code 6.20 MG/DL 0.52-1.04 H = CREAT) CALCIUM (test code = 8.6 MG/DL 8.4-10.2 N CA) BASIC METABOLIC [id number] 02:17:00 Test Item Value Reference Range Interpretation Comments SODIUM (test code = NA) 138 MMOL/L 137-145 N POTASSIUM (test code = K) 5.9 MMOL/L 3.5-5.1 H CHLORIDE (test code = CL) 102 MMOL/L 98-107 N CARBON DIOXIDE (test code = CO2) MMOL/L 22-30 GLUCOSE (test code = GLU) MG/DL 74-106 BLOOD UREA NITROGEN (test code = MG/DL 7-17 BUN) GLOMERULAR FILTRATION RATE (test code = GFR) CREATININE (test code = CREAT) MG/DL 0.52-1.04 CALCIUM (test code = CA) MG/DL 8.7-9.7 COVID 19 Asymptomatic IH [id number] 01:32:00 Test Item Value Reference Range Interpretation Comments COVID 19 NEGATIVE Negative "Negative resul ts from Asymptomatic IH AG patients with symptom (test code = onset beyondfiv e days, COVNONPUIAG) should be lyla beni as presumptive, andconfirmation with a molecular assay , if necessary forpa tient management may be performed. Nega tive results do notr ule out COVID-19 and sh ould not be used as the sole basisfor treatm ent or patient managem ent decisions, includinginfect ion control decisio ns. Negative result s should beconsidered in the context of a pa tients recent exposure s,history, and the presenc e of clinical signs and symptomsconsist ent with COVID-19.This t est detects both vi able andnon-viable S ARS-CoV and SARS CoV-2. Test performance dep endson the amount of virus (antigen) in the sample." B-TYPE NATRIURETIC [id number] 00:45:00 Test Item Value Reference Range Interpretation Comments B-TYPE NATRIURETIC PEPTIDE (test 351.0 PG/ML 0-100 H code = BNP) [id number] 00:29:00 Test Item Value Reference Range Interpretation Comments TROPONIN-I (test code = TROPI) 0.024 NG/ML 0.012-0.033 N PROTHROMBIN [id number] 00:28:00 Test Item Value Reference Range Interpretation Comments PROTHROMBIN TIME 10.1 SECONDS 9.4-12.5 N PATIENT (test code = PTP) INTERNATIONAL NORMAL 0.9 The INR is to be RATIO (test code = used only for INR) monitoring oral anticoagulantth erap y. INDICATION I NR VALUE ---- ---- ---- -------1. Prophylaxis, de ep venous thrombos is, including hig h risk surgery. 2.0 - 3.0 2. Prophylaxis, de ep venous thrombos is, hip surgery, treatment for d eep venous thrombosis or pulmonary prevention of systemic emboli sm in patients wit h valvular heart disease, atrial fibrillation, tissue heart va lve, or acute myocar dial infarction. 2.0 - 3 .0 3. Mechanical prosthesis hear t valves, recurrent syste richa embolism. 3.0 - 4.5 PTT [id number] 00:28:00 Test Item Value Reference Range Interpretation Comments PTT ACTIVATED (test code = APTT) 27.9 SECONDS 25.1-36.5 N [id number] 00:28:00 Test Item Value Reference Range Interpretation Comments D-DIMER (test 1079 ng/mLFEU 0-499 H Negative Pred ictive Value code = cutoff for DVT & PE: < 500 DDIMER) ng/mL FEUInterp retation: A value of < 500 ng/mL FEU has a NegativeP redictive Value in ruling out a DVT or PE diagnosis .A value of 500 ng/mL or gr eater is considered Positive.Positi ve result cannot be used for the diagnosis of DV T andPE without using o f standard radiological pr ocedures. COMPREHENSIVE METABOLIC [id number] 00:21:00 Test Item Value Reference Range Interpretation Comments SODIUM (test code = NA) 137 MMOL/L 137-145 N POTASSIUM (test code = 7.2 MMOL/L 3.5-5.1 MERRICK Johnson LE & K) READBACK ON AT 0018 BY Justin Bee CHLORIDE (test code = 102 MMOL/L 98-107 N CL) CARBON DIOXIDE (test 29 MMOL/L 22-30 N code = CO2) ANION GAP (test code = 13 MMOL/L 14-24 L GAP) GLUCOSE (test code = 79 MG/DL 74-106 N GLU) BLOOD UREA NITROGEN 94 MG/DL 7-17 H (test code = BUN) GLOMERULAR FILTRATION 7 Report ing units: RATE (test code = GFR) ml/mi n/1.73 m2 (Modified MDRD Formula)Referen ce Range: > or = 6 0 ml/min/1.73 m2 CREATININE (test code = 6.30 MG/DL 0.52-1.04 H CREAT) TOTAL PROTEIN (test 7.0 G/DL 6.3-8.2 N code = PROT) ALBUMIN (test code = 4.0 G/DL 3.5-5.0 N ALB) CALCIUM (test code = 7.8 MG/DL 8.4-10.2 L CA) BILIRUBIN TOTAL (test 0.4 MG/DL 0.2-1.3 N code = BILT) SGOT/AST (test code = 68 UNITS/L 14-36 H AST) SGPT/ALT (test code = 37 UNITS/L <35 ALT) ALKALINE PHOSPHATASE 91 UNITS/L 38-126 N (test code = ALKP) - XR CHEST [id number] 00:20:00 Patient Name: ROBERT MATHEWS Unit No: [id number] EXAMS: CPT CODE: [id number] XR CHEST 1V 78350 HISTORY: Shortness of breath Location: C3 COMPARISON:None FINDINGS: There is mild cardiomegaly. Aortic calcifications are present. The lungs are clear of focal consolidation. No effusion, pneumothorax, or acute osseous abnormality. IMPRESSION: 1. Cardiomegaly. No focal consolidation. at 0020 Reported and signed by: Marino Lema MD CC: Mode Zimmerman MD Technologist: Dennis Calle, RT(R) Transcrpt Date/Tm/Trnsp: 02/15/2020 (0020) [email or web address] [facility] NAME: ROBERT MATHEWS [id number] PHYS: [email or web address].10 - [place] [address] : 1960 AGE: 59 SEX: F LOC: Z.ERS PHONE #: [phone] DATE: 02/15/2020 STATUS: PRE ER FAX #: [phone] RADIOLOGY NO: PAGE 1 Signed ReportC W/AUTO DIFF 2020-02-14 23:59:00 Test Item Value Reference Range Interpretation Comments WHITE BLOOD CELL (test code = 4.0 K/MM3 3.8-9.8 N WBC) RED BLOOD CELL (test code = 3.89 M/MM3 3.58-4.97 N RBC) HEMOGLOBIN (test code = HGB) 11.5 G/DL 11.2-14.9 N HEMATOCRIT (test code = HCT) 39.1 % 33.2-43.5 N MEAN CELL VOLUME (test code = 101 fL 80.7-99.1 H MCV) MEAN CELL HGB (test code = MCH) 29.6 pg 27.0-34.1 N MEAN CELL HGB CONCETRATION 29.4 % 32.2-35.7 L (test code = MCHC) RED CELL DISTRIBUTION WIDTH 15.4 % 12.1-15.2 H (test code = RDW) PLATELET COUNT (test code = 116 K/MM3 129-368 L PLT) MEAN PLATELET VOLUME (test code 12.5 fl 7.4-10.4 H = MPV) NEUTROPHIL % (test code = NT%) 54.2 % 43-75 N IMMATURE GRANULOCYTE % (test 0.5 % 0.0-2.0 N code = IG%) LYMPHOCYTE % (test code = LY%) 27.8 % 14-44 N MONOCYTE % (test code = MO%) 14.0 % 4-13 H EOSINOPHIL % (test code = EO%) 3.0 % 0-6 N BASOPHIL % (test code = BA%) 0.5 % 0-2 N NUCLEATED RBC % (test code = 0.0 % 0-1.0 N NRBC%) NEUTROPHIL # (test code = NT#) 2.17 K/mm3 2.0-7.6 N IMMATURE GRANULOCYTE # (test 0.02 x10 3/uL 0-0.03 N code = IG#) LYMPHOCYTE # (test code = LY#) 1.11 K/mm3 1.0-3.8 N MONOCYTE # (test code = MO#) 0.56 K/mm3 0.1-0.8 N EOSINOPHIL # (test code = EO#) 0.12 K/mm3 0.0-0.2 N BASOPHIL # (test code = BA#) 0.02 K/mm3 0.0-0.2 N NUCLEATED RBC # (test code = 0.00 K/mm3 0.0-0.1 N NRBC#) POCT-GLUCOSE [id number] 09:48:00 Test Item Value Reference Range Interpretation Comments POC-GLUCOSE METER 83 mg/dL 70-110 TESTED AT [facility] [address] (BEAKER) (test code = [facility] [place] [facility] [address] CBC W/PLT COUNT & AUTO [id number] 05:29:00 Test Item Value Reference Range Interpretation Comments WHITE BLOOD CELL COUNT (BEAKER) 4.8 K/ L 4.0-10.0 (test code = 775) RED BLOOD CELL COUNT (BEAKER) 4.00 M/ L 4.00-5.00 (test code = 761) HEMOGLOBIN (BEAKER) (test code = 9.2 GM/DL 12.0-15.0 L 410) HEMATOCRIT (BEAKER) (test code = 30.4 % 36.0-45.0 L 411) MEAN CORPUSCULAR VOLUME (BEAKER) 76.1 fL 82.0-99.0 L (test code = 753) MEAN CORPUSCULAR HEMOGLOBIN 22.9 pg 27.0-33.0 L (BEAKER) (test code = 751) MEAN CORPUSCULAR HEMOGLOBIN CONC 30.1 GM/DL 32.0-36.0 L (BEAKER) (test code = 752) RED CELL DISTRIBUTION WIDTH 20.2 % 10.3-14.2 H (BEAKER) (test code = 412) PLATELET COUNT (BEAKER) (test 181 K/CU MM 150-430 code = 756) MEAN PLATELET VOLUME (BEAKER) 9.3 fL 6.5-10.5 (test code = 754) NUCLEATED RED BLOOD CELLS 0 /100 WBC 0-0 (BEAKER) (test code = 413) NEUTROPHILS RELATIVE PERCENT 46 % (BEAKER) (test code = 429) LYMPHOCYTES RELATIVE PERCENT 40 % (BEAKER) (test code = 430) MONOCYTES RELATIVE PERCENT 13 % (BEAKER) (test code = 431) EOSINOPHILS RELATIVE PERCENT 1 % (BEAKER) (test code = 432) BASOPHILS RELATIVE PERCENT 1 % (BEAKER) (test code = 437) NEUTROPHILS ABSOLUTE COUNT 2.20 K/ L 1.80-8.00 (BEAKER) (test code = 670) LYMPHOCYTES ABSOLUTE COUNT 1.90 K/ L 1.48-4.50 (BEAKER) (test code = 414) MONOCYTES ABSOLUTE COUNT (BEAKER) 0.60 K/ L 0.00-1.30 (test code = 415) EOSINOPHILS ABSOLUTE COUNT 0.00 K/ L 0.00-0.50 (BEAKER) (test code = 416) BASOPHILS ABSOLUTE COUNT (BEAKER) 0.00 K/ L 0.00-0.20 (test code = 417) (MANUAL DIFFERENTIAL)2016-11-24 05:29:00 Test Item Value Reference Range Interpretation Comments TOTAL COUNTED (BEAKER) (test code = 1351) WBC MORPHOLOGY (BEAKER) (test code = Normal 487) PLT MORPHOLOGY (BEAKER) (test code = Normal 486) ANISOCYTOSIS (BEAKER) (test code = 1+ few 961) HYPOCHROMIA (BEAKER) (test code = 3+ many 963) BASIC METABOLIC [id number] 05:25:00 Test Item Value Reference Range Interpretation Comments SODIUM (BEAKER) 136 meq/L 135-148 (test code = 381) POTASSIUM (BEAKER) 4.0 meq/L 3.6-5.5 (test code = 379) CHLORIDE (BEAKER) 93 meq/L 98-106 L (test code = 382) CO2 (BEAKER) (test 35 meq/L 20-29 H code = 355) BLOOD UREA NITROGEN 28 mg/dL 10-26 H (BEAKER) (test code = 354) CREATININE (BEAKER) 1.10 mg/dL 0.50-1.20 (test code = 358) GLUCOSE RANDOM 82 mg/dL 70-110 (BEAKER) (test code = 652) CALCIUM (BEAKER) 9.1 mg/dL 8.5-10.5 (test code = 697) EGFR (BEAKER) (test 51 mL/min/1.73 ESTIMA BENI GFR IS code = 1092) sq m NOT ACCURATE CREATININE CLEARANCE IN PREDICTING GLOMERULAR FILTRATION RATE . ESTIMATED GFR I S NOT APPLICABLE FOR DIALYSIS PATIEN TS. BASIC METABOLIC [id number] 10:01:00 Test Item Value Reference Range Interpretation Comments SODIUM (BEAKER) 140 meq/L 135-148 (test code = 381) POTASSIUM (BEAKER) 4.2 meq/L 3.6-5.5 (test code = 379) CHLORIDE (BEAKER) 91 meq/L 98-106 L (test code = 382) CO2 (BEAKER) (test 38 meq/L 20-29 H code = 355) BLOOD UREA NITROGEN 27 mg/dL 10-26 H (BEAKER) (test code = 354) CREATININE (BEAKER) 1.30 mg/dL 0.50-1.20 H (test code = 358) GLUCOSE RANDOM 105 mg/dL 70-110 (BEAKER) (test code = 652) CALCIUM (BEAKER) 9.6 mg/dL 8.5-10.5 (test code = 697) EGFR (BEAKER) (test 42 mL/min/1.73 ESTIMA BENI GFR IS code = 1092) sq m NOT ACCURATE CREATININE CLEARANCE IN PREDICTING GLOMERULAR FILTRATION RATE . ESTIMATED GFR I S NOT APPLICABLE FOR DIALYSIS PATIEN TS. HEMOGLOBIN AND [id number] 22:33:00 Test Item Value Reference Range Interpretation Comments HEMOGLOBIN (BEAKER) (test code = 9.4 GM/DL 12.0-15.0 L 410) HEMATOCRIT (BEAKER) (test code = 31.8 % 36.0-45.0 L 411) CBC W/PLT COUNT & AUTO [id number] 05:24:00 Test Item Value Reference Range Interpretation Comments WHITE BLOOD CELL COUNT (BEAKER) 4.6 K/ L 4.0-10.0 (test code = 775) RED BLOOD CELL COUNT (BEAKER) 3.46 M/ L 4.00-5.00 L (test code = 761) HEMOGLOBIN (BEAKER) (test code = 7.6 GM/DL 12.0-15.0 L 410) HEMATOCRIT (BEAKER) (test code = 25.5 % 36.0-45.0 L 411) MEAN CORPUSCULAR VOLUME (BEAKER) 73.8 fL 82.0-99.0 L (test code = 753) MEAN CORPUSCULAR HEMOGLOBIN 21.8 pg 27.0-33.0 L (BEAKER) (test code = 751) MEAN CORPUSCULAR HEMOGLOBIN CONC 29.6 GM/DL 32.0-36.0 L (BEAKER) (test code = 752) RED CELL DISTRIBUTION WIDTH 19.5 % 10.3-14.2 H (BEAKER) (test code = 412) PLATELET COUNT (BEAKER) (test 197 K/CU MM 150-430 code = 756) MEAN PLATELET VOLUME (BEAKER) 9.2 fL 6.5-10.5 (test code = 754) NUCLEATED RED BLOOD CELLS 0 /100 WBC 0-0 (BEAKER) (test code = 413) NEUTROPHILS RELATIVE PERCENT 50 % (BEAKER) (test code = 429) LYMPHOCYTES RELATIVE PERCENT 36 % (BEAKER) (test code = 430) MONOCYTES RELATIVE PERCENT 13 % (BEAKER) (test code = 431) EOSINOPHILS RELATIVE PERCENT 1 % (BEAKER) (test code = 432) BASOPHILS RELATIVE PERCENT 0 % (BEAKER) (test code = 437) NEUTROPHILS ABSOLUTE COUNT 2.30 K/ L 1.80-8.00 (BEAKER) (test code = 670) LYMPHOCYTES ABSOLUTE COUNT 1.70 K/ L 1.48-4.50 (BEAKER) (test code = 414) MONOCYTES ABSOLUTE COUNT (BEAKER) 0.60 K/ L 0.00-1.30 (test code = 415) EOSINOPHILS ABSOLUTE COUNT 0.10 K/ L 0.00-0.50 (BEAKER) (test code = 416) BASOPHILS ABSOLUTE COUNT (BEAKER) 0.00 K/ L 0.00-0.20 (test code = 417) (MANUAL DIFFERENTIAL)2016-11-21 05:24:00 Test Item Value Reference Range Interpretation Comments TOTAL COUNTED (BEAKER) (test code = 1351) WBC MORPHOLOGY (BEAKER) (test code = Normal 487) PLT MORPHOLOGY (BEAKER) (test code = Normal 486) ANISOCYTOSIS (BEAKER) (test code = 1+ few 961) HYPOCHROMIA (BEAKER) (test code = 3+ many 963) MICROCYTES (BEAKER) (test code = 965) 1+ few BASIC METABOLIC [id number] 04:52:00 Test Item Value Reference Range Interpretation Comments SODIUM (BEAKER) 140 meq/L 135-148 (test code = 381) POTASSIUM (BEAKER) 3.7 meq/L 3.6-5.5 (test code = 379) CHLORIDE (BEAKER) 93 meq/L 98-106 L (test code = 382) CO2 (BEAKER) (test 38 meq/L 20-29 H code = 355) BLOOD UREA NITROGEN 20 mg/dL 10-26 (BEAKER) (test code = 354) CREATININE (BEAKER) 0.90 mg/dL 0.50-1.20 (test code = 358) GLUCOSE RANDOM 87 mg/dL 70-110 (BEAKER) (test code = 652) CALCIUM (BEAKER) 8.5 mg/dL 8.5-10.5 (test code = 697) EGFR (BEAKER) (test 65 mL/min/1.73 ESTIMA BENI GFR IS code = 1092) sq m NOT ACCURATE CREATININE CLEARANCE IN PREDICTING GLOMERULAR FILTRATION RATE . ESTIMATED GFR I S NOT APPLICABLE FOR DIALYSIS PATIEN TS. [id number] 04:38:00 Test Item Value Reference Range Interpretation Comments MAGNESIUM (BEAKER) (test code = 2.2 mg/dL 1.5-3.0 627) CBC W/PLT COUNT & AUTO [id number] 12:27:00 Test Item Value Reference Range Interpretation Comments WHITE BLOOD CELL COUNT (BEAKER) 4.8 K/ L 4.0-10.0 (test code = 775) RED BLOOD CELL COUNT (BEAKER) 3.94 M/ L 4.00-5.00 L (test code = 761) HEMOGLOBIN (BEAKER) (test code = 8.6 GM/DL 12.0-15.0 L 410) HEMATOCRIT (BEAKER) (test code = 29.2 % 36.0-45.0 L 411) MEAN CORPUSCULAR VOLUME (BEAKER) 74.0 fL 82.0-99.0 L (test code = 753) MEAN CORPUSCULAR HEMOGLOBIN 22.0 pg 27.0-33.0 L (BEAKER) (test code = 751) MEAN CORPUSCULAR HEMOGLOBIN CONC 29.7 GM/DL 32.0-36.0 L (BEAKER) (test code = 752) RED CELL DISTRIBUTION WIDTH 19.1 % 10.3-14.2 H (BEAKER) (test code = 412) PLATELET COUNT (BEAKER) (test 242 K/CU MM 150-430 code = 756) MEAN PLATELET VOLUME (BEAKER) 9.0 fL 6.5-10.5 (test code = 754) NUCLEATED RED BLOOD CELLS 0 /100 WBC 0-0 (BEAKER) (test code = 413) NEUTROPHILS RELATIVE PERCENT 60 % (BEAKER) (test code = 429) LYMPHOCYTES RELATIVE PERCENT 27 % (BEAKER) (test code = 430) MONOCYTES RELATIVE PERCENT 12 % (BEAKER) (test code = 431) EOSINOPHILS RELATIVE PERCENT 1 % (BEAKER) (test code = 432) BASOPHILS RELATIVE PERCENT 1 % (BEAKER) (test code = 437) NEUTROPHILS ABSOLUTE COUNT 2.90 K/ L 1.80-8.00 (BEAKER) (test code = 670) LYMPHOCYTES ABSOLUTE COUNT 1.30 K/ L 1.48-4.50 L (BEAKER) (test code = 414) MONOCYTES ABSOLUTE COUNT (BEAKER) 0.60 K/ L 0.00-1.30 (test code = 415) EOSINOPHILS ABSOLUTE COUNT 0.10 K/ L 0.00-0.50 (BEAKER) (test code = 416) BASOPHILS ABSOLUTE COUNT (BEAKER) 0.00 K/ L 0.00-0.20 (test code = 417) (MANUAL DIFFERENTIAL)2016-11-20 12:27:00 Test Item Value Reference Range Interpretation Comments TOTAL COUNTED (BEAKER) (test code = 1351) WBC MORPHOLOGY (BEAKER) (test Normal code = 487) PLT MORPHOLOGY (BEAKER) (test Normal code = 486) ANISOCYTOSIS (BEAKER) (test code 1+ few = 961) HYPOCHROMIA (BEAKER) (test code = 2+ moderate 963) MICROCYTES (BEAKER) (test code = 1+ few 965) OVALOCYTES (BEAKER) (test code = 1+ few 477) TARGET CELLS (BEAKER) (test code 1+ few = 480) CD4 T CELL [id number] 07:25:00 Test Item Value Reference Range Interpretation Comments CD4 T CELL SUBSET RESULT See Separate Report POINTER (BEAKER) (test code = 2451) FLOW CYTOMETRY AP CASE # [id number] (BEAKER) (test code = 4382) BASIC METABOLIC [id number] 06:33:00 Test Item Value Reference Range Interpretation Comments SODIUM (BEAKER) 137 meq/L 135-148 (test code = 381) POTASSIUM (BEAKER) 3.4 meq/L 3.6-5.5 L (test code = 379) CHLORIDE (BEAKER) 93 meq/L 98-106 L (test code = 382) CO2 (BEAKER) (test 37 meq/L 20-29 H code = 355) BLOOD UREA NITROGEN 18 mg/dL 10-26 (BEAKER) (test code = 354) CREATININE (BEAKER) 0.90 mg/dL 0.50-1.20 (test code = 358) GLUCOSE RANDOM 115 mg/dL 70-110 H (BEAKER) (test code = 652) CALCIUM (BEAKER) 8.5 mg/dL 8.5-10.5 (test code = 697) EGFR (BEAKER) (test 65 mL/min/1.73 ESTIMA BENI GFR IS code = 1092) sq m NOT ACCURATE CREATININE CLEARANCE IN PREDICTING GLOMERULAR FILTRATION RATE . ESTIMATED GFR I S NOT APPLICABLE FOR DIALYSIS PATIEN TS. CBC W/PLT COUNT & AUTO [id number] 06:21:00 Test Item Value Reference Range Interpretation Comments WHITE BLOOD CELL COUNT (BEAKER) 4.3 K/ L 4.0-10.0 (test code = 775) RED BLOOD CELL COUNT (BEAKER) 3.54 M/ L 4.00-5.00 L (test code = 761) HEMOGLOBIN (BEAKER) (test code = 7.7 GM/DL 12.0-15.0 L 410) HEMATOCRIT (BEAKER) (test code = 25.9 % 36.0-45.0 L 411) MEAN CORPUSCULAR VOLUME (BEAKER) 73.4 fL 82.0-99.0 L (test code = 753) MEAN CORPUSCULAR HEMOGLOBIN 21.8 pg 27.0-33.0 L (BEAKER) (test code = 751) MEAN CORPUSCULAR HEMOGLOBIN CONC 29.8 GM/DL 32.0-36.0 L (BEAKER) (test code = 752) RED CELL DISTRIBUTION WIDTH 19.4 % 10.3-14.2 H (BEAKER) (test code = 412) PLATELET COUNT (BEAKER) (test 220 K/CU MM 150-430 code = 756) MEAN PLATELET VOLUME (BEAKER) 8.7 fL 6.5-10.5 (test code = 754) NUCLEATED RED BLOOD CELLS 0 /100 WBC 0-0 (BEAKER) (test code = 413) NEUTROPHILS RELATIVE PERCENT 48 % (BEAKER) (test code = 429) LYMPHOCYTES RELATIVE PERCENT 36 % (BEAKER) (test code = 430) MONOCYTES RELATIVE PERCENT 14 % (BEAKER) (test code = 431) EOSINOPHILS RELATIVE PERCENT 1 % (BEAKER) (test code = 432) BASOPHILS RELATIVE PERCENT 0 % (BEAKER) (test code = 437) NEUTROPHILS ABSOLUTE COUNT 2.00 K/ L 1.80-8.00 (BEAKER) (test code = 670) LYMPHOCYTES ABSOLUTE COUNT 1.60 K/ L 1.48-4.50 (BEAKER) (test code = 414) MONOCYTES ABSOLUTE COUNT (BEAKER) 0.60 K/ L 0.00-1.30 (test code = 415) EOSINOPHILS ABSOLUTE COUNT 0.10 K/ L 0.00-0.50 (BEAKER) (test code = 416) BASOPHILS ABSOLUTE COUNT (BEAKER) 0.00 K/ L 0.00-0.20 (test code = 417) (MANUAL DIFFERENTIAL)2016-11-20 06:21:00 Test Item Value Reference Range Interpretation Comments TOTAL COUNTED (BEAKER) (test code = 1351) WBC MORPHOLOGY (BEAKER) (test Normal code = 487) PLT MORPHOLOGY (BEAKER) (test Normal code = 486) ANISOCYTOSIS (BEAKER) (test code 1+ few = 961) HYPOCHROMIA (BEAKER) (test code = 2+ moderate 963) MICROCYTES (BEAKER) (test code = 1+ few 965) BASIC METABOLIC [id number] 07:40:00 Test Item Value Reference Range Interpretation Comments SODIUM (BEAKER) 139 meq/L 135-148 (test code = 381) POTASSIUM (BEAKER) 4.6 meq/L 3.6-5.5 (test code = 379) CHLORIDE (BEAKER) 91 meq/L 98-106 L (test code = 382) CO2 (BEAKER) (test 40 meq/L 20-29 HH code = 355) BLOOD UREA NITROGEN 17 mg/dL 10-26 (BEAKER) (test code = 354) CREATININE (BEAKER) 0.90 mg/dL 0.50-1.20 (test code = 358) GLUCOSE RANDOM 81 mg/dL 70-110 (BEAKER) (test code = 652) CALCIUM (BEAKER) 8.8 mg/dL 8.5-10.5 (test code = 697) EGFR (BEAKER) (test 65 mL/min/1.73 ESTIMA BENI GFR IS code = 1092) sq m NOT ACCURATE CREATININE CLEARANCE IN PREDICTING GLOMERULAR FILTRATION RATE . ESTIMATED GFR I S NOT APPLICABLE FOR DIALYSIS PATIEN TS. [id number] 07:26:00 Test Item Value Reference Range Interpretation Comments MAGNESIUM ([facility]) (test code = 2.4 mg/dL 1.5-3.0 627) POCT-GLUCOSE [id number] 16:47:00 Test Item Value Reference Range Interpretation Comments POC-GLUCOSE METER 110 mg/dL 70-110 TESTED AT [address] ([facility]) (test code [address] [facility] [place] = [address]) [address] HIV-1 PCR, [id number] 14:46:00 Test Item Value Reference Range Interpretation Comments HIV-1 RESULT HIV RNA not detected HIV RNA not detected COMPONENT ([facility]) (test code = 2703) This test uses a Real-Time Polymerase Chain Reaction (RT-PCR) methodology to detect a highly conserved region of the HIV-1 gag gene and was performed using the JOIE AmpliPrep/JOIE TaqMan HIV-1 test kit version 2.0 ([employer]Reportable range for this assay is 20 - 10,000,000 copies per mL (1.3 - 7.0 Log copies/mL).POCT-GLUCOSE [id number] 12:54:00 Test Item Value Reference Range Interpretation Comments POC-GLUCOSE METER 91 mg/dL 70-110 TESTED AT [address] ([facility]) (test code = [address] [facility] [address]) [address] CBC W/PLT COUNT & AUTO [id number] 11:39:00 Test Item Value Reference Range Interpretation Comments WHITE BLOOD CELL COUNT ([facility]) 5.7 K/ L 4.0-10.0 (test code = 775) RED BLOOD CELL COUNT ([facility]) 4.14 M/ L 4.00-5.00 (test code = 761) HEMOGLOBIN ([facility]) (test code = 9.0 GM/DL 12.0-15.0 L 410) HEMATOCRIT ([facility]) (test code = 30.9 % 36.0-45.0 L 411) MEAN CORPUSCULAR VOLUME ([facility]) 74.6 fL 82.0-99.0 L (test code = 753) MEAN CORPUSCULAR HEMOGLOBIN 21.8 pg 27.0-33.0 L (BEAKER) (test code = 751) MEAN CORPUSCULAR HEMOGLOBIN CONC 29.2 GM/DL 32.0-36.0 L (BEAKER) (test code = 752) RED CELL DISTRIBUTION WIDTH 19.6 % 10.3-14.2 H (BEAKER) (test code = 412) PLATELET COUNT (BEAKER) (test 261 K/CU MM 150-430 code = 756) MEAN PLATELET VOLUME (BEAKER) 8.6 fL 6.5-10.5 (test code = 754) NUCLEATED RED BLOOD CELLS 0 /100 WBC 0-0 (BEAKER) (test code = 413) NEUTROPHILS RELATIVE PERCENT 60 % (BEAKER) (test code = 429) LYMPHOCYTES RELATIVE PERCENT 27 % (BEAKER) (test code = 430) MONOCYTES RELATIVE PERCENT 12 % (BEAKER) (test code = 431) EOSINOPHILS RELATIVE PERCENT 1 % (BEAKER) (test code = 432) BASOPHILS RELATIVE PERCENT 0 % (BEAKER) (test code = 437) NEUTROPHILS ABSOLUTE COUNT 3.40 K/ L 1.80-8.00 (BEAKER) (test code = 670) LYMPHOCYTES ABSOLUTE COUNT 1.60 K/ L 1.48-4.50 (BEAKER) (test code = 414) MONOCYTES ABSOLUTE COUNT (BEAKER) 0.70 K/ L 0.00-1.30 (test code = 415) EOSINOPHILS ABSOLUTE COUNT 0.00 K/ L 0.00-0.50 (BEAKER) (test code = 416) BASOPHILS ABSOLUTE COUNT (BEAKER) 0.00 K/ L 0.00-0.20 (test code = 417) (MANUAL DIFFERENTIAL)2016-11-18 11:39:00 Test Item Value Reference Range Interpretation Comments TOTAL COUNTED (BEAKER) (test code = 1351) WBC MORPHOLOGY (BEAKER) (test Normal code = 487) PLT MORPHOLOGY (BEAKER) (test Normal code = 486) ANISOCYTOSIS (BEAKER) (test code 1+ few = 961) HYPOCHROMIA (BEAKER) (test code = 2+ moderate 963) MICROCYTES (BEAKER) (test code = 1+ few 965) CBC W/PLT COUNT & AUTO [id number] 05:22:00 Test Item Value Reference Range Interpretation Comments WHITE BLOOD CELL COUNT (BEAKER) 4.7 K/ L 4.0-10.0 (test code = 775) RED BLOOD CELL COUNT (BEAKER) 3.41 M/ L 4.00-5.00 L (test code = 761) HEMOGLOBIN (BEAKER) (test code = 7.5 GM/DL 12.0-15.0 L 410) HEMATOCRIT (BEAKER) (test code = 25.4 % 36.0-45.0 L 411) MEAN CORPUSCULAR VOLUME (BEAKER) 74.6 fL 82.0-99.0 L (test code = 753) MEAN CORPUSCULAR HEMOGLOBIN 21.9 pg 27.0-33.0 L (BEAKER) (test code = 751) MEAN CORPUSCULAR HEMOGLOBIN CONC 29.4 GM/DL 32.0-36.0 L (BEAKER) (test code = 752) RED CELL DISTRIBUTION WIDTH 18.9 % 10.3-14.2 H (BEAKER) (test code = 412) PLATELET COUNT (BEAKER) (test 230 K/CU MM 150-430 code = 756) MEAN PLATELET VOLUME (BEAKER) 8.4 fL 6.5-10.5 (test code = 754) NUCLEATED RED BLOOD CELLS 0 /100 WBC 0-0 (BEAKER) (test code = 413) NEUTROPHILS RELATIVE PERCENT 47 % (BEAKER) (test code = 429) LYMPHOCYTES RELATIVE PERCENT 38 % (BEAKER) (test code = 430) MONOCYTES RELATIVE PERCENT 13 % (BEAKER) (test code = 431) EOSINOPHILS RELATIVE PERCENT 2 % (BEAKER) (test code = 432) BASOPHILS RELATIVE PERCENT 0 % (BEAKER) (test code = 437) NEUTROPHILS ABSOLUTE COUNT 2.20 K/ L 1.80-8.00 (BEAKER) (test code = 670) LYMPHOCYTES ABSOLUTE COUNT 1.80 K/ L 1.48-4.50 (BEAKER) (test code = 414) MONOCYTES ABSOLUTE COUNT (BEAKER) 0.60 K/ L 0.00-1.30 (test code = 415) EOSINOPHILS ABSOLUTE COUNT 0.10 K/ L 0.00-0.50 (BEAKER) (test code = 416) BASOPHILS ABSOLUTE COUNT (BEAKER) 0.00 K/ L 0.00-0.20 (test code = 417) (MANUAL DIFFERENTIAL)2016-11-18 05:22:00 Test Item Value Reference Range Interpretation Comments TOTAL COUNTED (BEAKER) (test code = 1351) WBC MORPHOLOGY (BEAKER) (test Normal code = 487) PLT MORPHOLOGY (BEAKER) (test Normal code = 486) ANISOCYTOSIS (BEAKER) (test code 1+ few = 961) HYPOCHROMIA (BEAKER) (test code = 2+ moderate 963) MICROCYTES (BEAKER) (test code = 1+ few 965) BASIC METABOLIC [id number] 04:37:00 Test Item Value Reference Range Interpretation Comments SODIUM (BEAKER) 140 meq/L 135-148 (test code = 381) POTASSIUM (BEAKER) 3.5 meq/L 3.6-5.5 L (test code = 379) CHLORIDE (BEAKER) 96 meq/L 98-106 L (test code = 382) CO2 (BEAKER) (test 37 meq/L 20-29 H code = 355) BLOOD UREA NITROGEN 16 mg/dL 10-26 (BEAKER) (test code = 354) CREATININE (BEAKER) 0.90 mg/dL 0.50-1.20 (test code = 358) GLUCOSE RANDOM 68 mg/dL 70-110 L (BEAKER) (test code = 652) CALCIUM (BEAKER) 8.2 mg/dL 8.5-10.5 L (test code = 697) EGFR (BEAKER) (test 65 mL/min/1.73 ESTIMA BENI GFR IS code = 1092) sq m NOT ACCURATE CREATININE CLEARANCE IN PREDICTING GLOMERULAR FILTRATION RATE . ESTIMATED GFR I S NOT APPLICABLE FOR DIALYSIS PATIEN TS. [id number] 04:15:00 Test Item Value Reference Range Interpretation Comments MAGNESIUM (BEAKER) (test code = 1.7 mg/dL 1.5-3.0 627) OCCULT BLOOD, [id number] 17:29:00 Test Item Value Reference Range Interpretation Comments FECAL OCCULT BLOOD (BEAKER) (test Negative Negative code = 618) FLOW [id number] 17:27:00Flow Cytometry Report Case: [id number] Authorizing Provider: Bridger Trinidad MD Collected: 11/17/2016 0543 Ordering Location: [address] Med/Surg Received: 11/17/2016 1309 Pathologist: Domitila Paz MD Specimen: Other RESULTS: ADULT NORMALS ABSOLUTE LYMPHS: 1804.48/cmm 911-4017/cmm T LYMPHOCYTE ENUMERATION: CD3 (Total T cell) 75.00% 1353.36/cmm 619--3000/cmm CD4 (T Cedar cells) 38.57% 695.92/cmm 437-1930/cmm CD8 (T Suppressor cells) 34.86% 629.00/cmm 161-1160/cmm CD4:CD8 (Th:Ts Ratio) 1.11 1.00-2.50 CD16+56 (Natural Killer cells) 12.82% 231.41/cmm 84-722/cmm B LYMPHOCYTE ENUMERATION: CD19 (TotalB cells) 11.80% 213.01/cmm 74-706/cmm These reference ranges are specific for the T cell subset immune profile methodology, effective 09/28/2014. No cellular immune alteration detected. Absolute lymph count, absolute CD4 count and CD4:CD8 ratio within normal limits. [id number] bloodCD3/CD4/CD8/CD16/IP73Nmrov tests were developed and their performance characteristics determined by [facility]. They have not been cleared or approved by the U.S. Food and Drug Administration. The FDA has determined that such clearance or approval is not necessary. It should not be regardedas investigational or for research. This laboratory is certified under the Clinical Laboratory Improvement Amendments of 1988 ("CLIA") as qualified to perform high-complexity clinical testing.IRON, TIBC, % SAT. (WITHOUT FERRITIN)2016-11-17 16:31:00 Test Item Value Reference Range Interpretation Comments IRON (BEAKER) (test code = 547) 13 ug/dL 40-160 L TOTAL IRON BINDING CAPACITY 443 ug/dL 250-450 (BEAKER) (test code = 769) IRON % SATURATION (2) (BEAKER) 3 % 20-55 L (test code = 2590) CBC W/PLT COUNT & AUTO [id number] 15:38:00 Test Item Value Reference Range Interpretation Comments WHITE BLOOD CELL COUNT (BEAKER) 5.1 K/ L 4.0-10.0 (test code = 775) RED BLOOD CELL COUNT (BEAKER) 4.14 M/ L 4.00-5.00 (test code = 761) HEMOGLOBIN (BEAKER) (test code = 8.9 GM/DL 12.0-15.0 L 410) HEMATOCRIT (BEAKER) (test code = 30.7 % 36.0-45.0 L 411) MEAN CORPUSCULAR VOLUME (BEAKER) 74.1 fL 82.0-99.0 L (test code = 753) MEAN CORPUSCULAR HEMOGLOBIN 21.5 pg 27.0-33.0 L (BEAKER) (test code = 751) MEAN CORPUSCULAR HEMOGLOBIN CONC 29.0 GM/DL 32.0-36.0 L (BEAKER) (test code = 752) RED CELL DISTRIBUTION WIDTH 18.2 % 10.3-14.2 H (BEAKER) (test code = 412) PLATELET COUNT (BEAKER) (test 275 K/CU MM 150-430 code = 756) MEAN PLATELET VOLUME (BEAKER) 8.6 fL 6.5-10.5 (test code = 754) NEUTROPHILS RELATIVE PERCENT 60 % (BEAKER) (test code = 429) LYMPHOCYTES RELATIVE PERCENT 26 % (BEAKER) (test code = 430) MONOCYTES RELATIVE PERCENT 12 % (BEAKER) (test code = 431) EOSINOPHILS RELATIVE PERCENT 2 % (BEAKER) (test code = 432) BASOPHILS RELATIVE PERCENT 1 % (BEAKER) (test code = 437) NEUTROPHILS ABSOLUTE COUNT 3.10 K/ L 1.80-8.00 (BEAKER) (test code = 670) LYMPHOCYTES ABSOLUTE COUNT 1.30 K/ L 1.48-4.50 L (BEAKER) (test code = 414) MONOCYTES ABSOLUTE COUNT (BEAKER) 0.60 K/ L 0.00-1.30 (test code = 415) EOSINOPHILS ABSOLUTE COUNT 0.10 K/ L 0.00-0.50 (BEAKER) (test code = 416) BASOPHILS ABSOLUTE COUNT (BEAKER) 0.00 K/ L 0.00-0.20 (test code = 417) (MANUAL DIFFERENTIAL)2016-11-17 15:38:00 Test Item Value Reference Range Interpretation Comments TOTAL COUNTED (BEAKER) (test code = 1351) WBC MORPHOLOGY (BEAKER) (test code = Normal 487) LARGE PLT(BEAKER) (test code = 2156) Present ANISOCYTOSIS (BEAKER) (test code = 1+ few 961) HYPOCHROMIA (BEAKER) (test code = 3+ many 963) MICROCYTES (BEAKER) (test code = 965) 1+ few B-TYPE NATRIURETIC FACTOR (BNP)2016-11-17 14:22:00 Test Item Value Reference Range Interpretation Comments B-TYPE NATRIURETIC PEPTIDE (BEAKER) 267 pg/mL 0-100 H (test code = 700) BASIC METABOLIC [id number] 14:14:00 Test Item Value Reference Range Interpretation Comments SODIUM (BEAKER) 140 meq/L 135-148 (test code = 381) POTASSIUM (BEAKER) 3.9 meq/L 3.6-5.5 (test code = 379) CHLORIDE (BEAKER) 95 meq/L 98-106 L (test code = 382) CO2 (BEAKER) (test 37 meq/L 20-29 H code = 355) BLOOD UREA NITROGEN 17 mg/dL 10-26 (BEAKER) (test code = 354) CREATININE (BEAKER) 0.90 mg/dL 0.50-1.20 (test code = 358) GLUCOSE RANDOM 108 mg/dL 70-110 (BEAKER) (test code = 652) CALCIUM (BEAKER) 8.7 mg/dL 8.5-10.5 (test code = 697) EGFR (BEAKER) (test 65 mL/min/1.73 ESTIMA BENI GFR IS code = 1092) sq m NOT ACCURATE CREATININE CLEARANCE IN PREDICTING GLOMERULAR FILTRATION RATE . ESTIMATED GFR I S NOT APPLICABLE FOR DIALYSIS PATIEN TS. [id number] 14:08:00 Test Item Value Reference Range Interpretation Comments MAGNESIUM (BEAKER) (test code = 1.9 mg/dL 1.5-3.0 627) POCT-GLUCOSE [id number] 12:01:00 Test Item Value Reference Range Interpretation Comments POC-GLUCOSE METER 108 mg/dL 70-110 TESTED AT [address] (BEAKER) (test code [address] [facility] [place] = 1538) [address] CBC W/PLT COUNT & AUTO [id number] 06:59:00 Test Item Value Reference Range Interpretation Comments WHITE BLOOD CELL COUNT (BEAKER) 5.0 K/ L 4.0-10.0 (test code = 775) RED BLOOD CELL COUNT (BEAKER) 3.58 M/ L 4.00-5.00 L (test code = 761) HEMOGLOBIN (BEAKER) (test code = 7.9 GM/DL 12.0-15.0 L 410) HEMATOCRIT (BEAKER) (test code = 26.6 % 36.0-45.0 L 411) MEAN CORPUSCULAR VOLUME (BEAKER) 74.3 fL 82.0-99.0 L (test code = 753) MEAN CORPUSCULAR HEMOGLOBIN 22.1 pg 27.0-33.0 L (BEAKER) (test code = 751) MEAN CORPUSCULAR HEMOGLOBIN CONC 29.7 GM/DL 32.0-36.0 L (BEAKER) (test code = 752) RED CELL DISTRIBUTION WIDTH 19.8 % 10.3-14.2 H (BEAKER) (test code = 412) PLATELET COUNT (BEAKER) (test 258 K/CU MM 150-430 code = 756) MEAN PLATELET VOLUME (BEAKER) 8.9 fL 6.5-10.5 (test code = 754) NUCLEATED RED BLOOD CELLS 0 /100 WBC 0-0 (BEAKER) (test code = 413) NEUTROPHILS RELATIVE PERCENT 51 % (BEAKER) (test code = 429) LYMPHOCYTES RELATIVE PERCENT 36 % (BEAKER) (test code = 430) MONOCYTES RELATIVE PERCENT 13 % (BEAKER) (test code = 431) EOSINOPHILS RELATIVE PERCENT 0 % (BEAKER) (test code = 432) BASOPHILS RELATIVE PERCENT 1 % (BEAKER) (test code = 437) NEUTROPHILS ABSOLUTE COUNT 2.50 K/ L 1.80-8.00 (BEAKER) (test code = 670) LYMPHOCYTES ABSOLUTE COUNT 1.80 K/ L 1.48-4.50 (BEAKER) (test code = 414) MONOCYTES ABSOLUTE COUNT (BEAKER) 0.60 K/ L 0.00-1.30 (test code = 415) EOSINOPHILS ABSOLUTE COUNT 0.00 K/ L 0.00-0.50 (BEAKER) (test code = 416) BASOPHILS ABSOLUTE COUNT (BEAKER) 0.00 K/ L 0.00-0.20 (test code = 417) (MANUAL DIFFERENTIAL)2016-11-15 06:59:00 Test Item Value Reference Range Interpretation Comments TOTAL COUNTED (BEAKER) (test code = 1351) WBC MORPHOLOGY (BEAKER) (test Normal code = 487) PLT MORPHOLOGY (BEAKER) (test Normal code = 486) ANISOCYTOSIS (BEAKER) (test code 1+ few = 961) HYPOCHROMIA (BEAKER) (test code = 2+ moderate 963) MICROCYTES (BEAKER) (test code = 1+ few 965) BASIC METABOLIC [id number] 06:11:00 Test Item Value Reference Range Interpretation Comments SODIUM (BEAKER) 144 meq/L 135-148 (test code = 381) POTASSIUM (BEAKER) 4.5 meq/L 3.6-5.5 (test code = 379) CHLORIDE (BEAKER) 105 meq/L 98-106 (test code = 382) CO2 (BEAKER) (test 30 meq/L 20-29 H code = 355) BLOOD UREA NITROGEN 23 mg/dL 10-26 (BEAKER) (test code = 354) CREATININE (BEAKER) 1.00 mg/dL 0.50-1.20 (test code = 358) GLUCOSE RANDOM 76 mg/dL 70-110 (BEAKER) (test code = 652) CALCIUM (BEAKER) 8.2 mg/dL 8.5-10.5 L (test code = 697) EGFR (BEAKER) (test 57 mL/min/1.73 ESTIMA BENI GFR IS code = 1092) sq m NOT ACCURATE CREATININE CLEARANCE IN PREDICTING GLOMERULAR FILTRATION RATE . ESTIMATED GFR I S NOT APPLICABLE FOR DIALYSIS PATIEN TS.
[2020-12-31] MEDS ORDERED: NA CHLORIDE 0.9% 250 ML ONE (14:26)
[2020-12-31] MEDS ORDERED: ACETAMINOPHEN 500 MG TAB ONE ×2 (14:26→22:17)
[2020-12-31] MEDS ORDERED: VANCOMYCIN 1 GM/VIAL ONE (14:26)
[2020-12-31] MEDS ORDERED: NA CHLORIDE 0.9% 3,000 ML ONE (14:26)
[2020-12-31] MEDS ORDERED: CEFEPIME/SWI 1gm 10 ML ONE (14:27)
[2020-12-31 14:28] LABS: Urine Blood Trace-intact (Negative); Urine Glucose Negative (Negative); Urine Protein 1+ (Negative); Urine Specific Gravity 1.015 (1.005-1.030)
[2020-12-31 14:34] LABS: Absolute Lymphocytes (CBC) 1.6 K/uL (0.7-4.9); Hematocrit 43.7 % (36.0-45.0); Lymphocytes % 13.2 % (15.3-44.8); MPV 10.1 fL (7.6-11.3); RBC Red Blood Cell Count 5.07 M/uL (3.86-4.86)
[2020-12-31 14:38] LABS: Protime INR 1.15
[2020-12-31 14:47] LABS: Albumin 3.1 g/dL (3.4-5.0); Bilirubin Direct 0.2 mg/dL (0-0.2); Bilirubin Total 0.6 mg/dL (0.2-1.0); Magnesium 2.6 mg/dL (1.8-2.4); Potassium 4.5 mmol/L (3.5-5.1); Troponin (Emerg Dept Use Only) 0.08 ng/mL (0.0-0.045)
--- NOTE | 2020-12-31 15:09 | RAD REPORT ---
EXAM DESCRIPTION: RAD - Chest Single View - 12/31/2020 3:01 pm CLINICAL HISTORY: SOB COMPARISON: April 2014 TECHNIQUE: AP portable chest image was obtained 12/31/2020 3:01 pm . FINDINGS: Lung volumes are underinflated compared to 2013. Extensive airspace opacification present in the left lung field and in the right base. Interstitial pattern has increased. In the acute clinical setting, pneumonia would be the most likely etiology and COVID-19 pneumonia wou ld be a primary consideration given the current clinical environment. Other non COVID pneumonia is po ssible. Heart and vasculature are normal. No measurable pleural effusion and no pneumothorax. No acute bony abnormality seen. No acute aortic findings suspected. IMPRESSION: Bilateral lung parenchymal opacification worse in the left lung field. In the acute clin ical setting pneumonia is the most likely etiology and would include COVID-19 pneumonia. No significant failure or volume overload finding suspected. A neoplastic process cannot be excluded if the patient has no infectious respiratory symptoms. Pattern is not a typical failure or volume overload pattern.
[2020-12-31] MEDS ORDERED: Levofloxacin 750mg IV 750 MG/150 ML BAG IV ONE (15:11)
[2020-12-31 15:12] LABS: Urine Amorphous Sediment 2+ /HPF (NONE SEEN); Urine Bacteria >50 /HPF (<20)
[2020-12-31 16:06] LABS: Blood Morphology Comment NOT SEEN (NOT SEEN); Platelet Estimate DECR; White Blood Cell Scan OK (OK)
[2020-12-31] MEDS ORDERED: NOREPINEPHRINE 4mg/D5W 250mL 4 MG/250 ML BAG IV ONE (16:07)
--- NOTE | 2020-12-31 16:24 | RAD REPORT ---
EXAM DESCRIPTION: RAD - Chest Single View - 12/31/2020 4:12 pm CLINICAL HISTORY: s/p CL COMPARISON: December 31 TECHNIQUE: AP portable chest image was obtained 12/31/2020 4:12 pm . FINDINGS: Right subclavian central line has been placed. Tip is at the distal SVC. No pneumothorax. Left greater than right lung parenchymal opacification present similar to earlier in the day. Heart a nd vasculature are normal. No measurable pleural effusion and no pneumothorax. No acute bony abnormal ity seen. No acute aortic findings suspected. IMPRESSION: Right subclavian central line placement with tip in the distal SVC. No pneumothorax.
--- NOTE | 2020-12-31 16:35 | ER ---
Nurse's Notes [facility] Name: Keely Chen Age: 60 yrs Sex: Female : 1960 Arrival Date: 12/31/2020 Time: 13:48 Bed 2 Private MD: Diagnosis: Severe sepsis with septic shock;Pneumonia due to SARS-associated coronavirus;UTI/ Urinary tract infection, site not specified Presentation: 12/31 13:49 Chief complaint: EMS states: Worsening SOB x 2-3 days. SpO2 74% on RA, upper 80s on hb DuoNeb.. 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 20g RAC. Coronavirus screen: Client presents with at least one sign or symptom that may indicate coronavirus-19. Standard/surgical mask placed on the client. Provider contacted for isolation considerations. Ebola Screen: No symptoms or risks identified at this time. Risk Assessment: Do you want to hurt yourself or someone else? Patient reports no desire to harm self or others. Onset of symptoms was December 29, 2020. 13:49 Method Of Arrival: EMS: [facility] 13:49 Acuity: JAMEY 2 hb 13:52 Initial Sepsis Screen: Does the patient meet any 2 criteria? RR > 20 per min. HR > 90 hb bpm. Yes Does the patient have a suspected source of infection? No. Patient's initial sepsis screen is negative. Triage Assessment: 13:49 General: Appears in no apparent distress. uncomfortable, obese, Behavior is calm, sv cooperative, appropriate for age. Pain: Denies pain. Neuro: Level of Consciousness is awake, alert, obeys commands, Oriented to person, place, time, situation, Moves all extremities. Full function. Cardiovascular: Capillary refill is > 3 seconds fingers nailbeds have a blueish hue. Respiratory: Reports shortness of breath at rest on exertion Airway is patent Respiratory effort is even, unlabored, shallow, Respiratory pattern is symmetrical, tachypnea Onset: The symptoms/episode began/occurred yesterday, the patient has moderate shortness of breath. Derm: Skin is pale. Historical: - Allergies: 13:51 No Known Allergies; hb - PMHx: 13:51 Arthritis; Fibromyalgia; HIV; neuropathy; hb - Immunization history:: Client reports receiving the 2nd dose of the Covid vaccine, Client reports receiving the 1st dose of the Covid vaccine. - Social history:: Smoking status: unknown. Screenin:54 Abuse screen: Denies threats or abuse. Denies injuries from another. Nutritional hb screening: No deficits noted. Tuberculosis screening: No symptoms or risk factors identified. Fall Risk Total Jarrett Fall Scale indicates Low Risk Score (25-44 pts). Fall prevention measures have been instituted. Side Rails Up X 2 Frequent Obs/Assesments occuring As available Patient and Family Educated on Fall Prevention Program and strategies. Assessment: 13:46 Reassessment: Code Sepsis called. sv 14:05 Reassessment: Hi flow 30L 60%, O2 sat 92%. sv 14:34 Reassessment: Patient appears in no apparent distress at this time. Patient and/or sv family updated on plan of care and expected duration. Pain level reassessed. Patient is alert, oriented x 3, equal unlabored respirations, skin warm/dry/pink. Patient states symptoms have improved. Cardiovascular: Rhythm is sinus rhythm. Respiratory: Airway is patent Respiratory effort is even, unlabored, Respiratory pattern is regular, symmetrical. 14:53 Reassessment: Patient appears in no apparent distress at this time. Patient and/or sv family updated on plan of care and expected duration. Pain level reassessed. Patient is alert, oriented x 3, equal unlabored respirations, skin warm/dry/pink. 16:24 Reassessment: Patient appears in no apparent distress at this time. Patient and/or sv family updated on plan of care and expected duration. Pain level reassessed. Patient is alert, oriented x 3, equal unlabored respirations, skin warm/dry/pink. 17:46 Reassessment: Patient appears in no apparent distress at this time. No changes from hb previously documented assessment. Patient and/or family updated on plan of care and expected duration. Pain level reassessed. 18:20 Reassessment: Patient appears in no apparent distress at this time. No changes from sv previously documented assessment. Vital Signs: 13:52 BP 75 / 53; Pulse 92; Resp 32; Temp 100.8(TE); Pulse Ox 76% on R/A; Weight 113.4 kg; hb Pain 0/10; 14:00 BP 79 / 39; Pulse 86; Resp 23; Pulse Ox 94% ; sv 14:26 Temp 103.1(C); hb 14:38 BP 83 / 44; Pulse 88; Resp 19; Pulse Ox 92% ; sv 14:53 Temp 102.6(C); sv 15:00 BP 80 / 42; Pulse 88; Resp 18; Temp 101.9(C); Pulse Ox 92% ; sv 15:30 BP 86 / 45; Pulse 85; Resp 20; Temp 100.9(C); Pulse Ox 91% ; sv 16:00 BP 92 / 70; Pulse 89; Resp 19; Temp 100.5(C); Pulse Ox 91% ; hb 16:15 BP 85 / 50; Pulse 88; Resp 21; Temp 100.3(C); Pulse Ox 90% ; sv 16:30 BP 79 / 69; Pulse 81; Resp 18; Temp 100.1; Pulse Ox 94% ; sv 16:45 BP 110 / 53; Pulse 82; Resp 19; Temp 100(C); Pulse Ox 93% ; sv 17:00 BP 102 / 60; Pulse 81; Resp 15; Pulse Ox 93% ; sv 17:15 BP 110 / 50; Pulse 82; Resp 15; Pulse Ox 92% ; sv 17:30 BP 102 / 50; Pulse 82; Resp 16; Temp 99.8(C); Pulse Ox 92% ; sv 17:45 BP 108 / 55; Pulse 82; Resp 16; Pulse Ox 92% ; sv 18:00 BP 105 / 50; Pulse 82; Resp 17; Temp 99.7(C); Pulse Ox 92% ; sv 18:15 BP 104 / 55; Pulse 80; Resp 19; Temp 99.6; Pulse Ox 93% ; sv 18:30 BP 108 / 54; Pulse 78; Resp 22; Pulse Ox 92% ; sv 18:45 BP 110 / 52; Pulse 79; Resp 17; Temp 99.5(C); Pulse Ox 93% ; sv 14:00 Hi flow O2 \T\ 30 lpm with FiO2 \T\ 60%. sv 14:38 Hi flow O2\T\30 lpm with FiO2 \T\ 60%. sv 15:00 Hi flow O2\T\30 lpm with FiO2 \T\ 60%. sv 15:30 Hi flow O2 \T\30 lpm with FiO2 \T\ 60% sv 16:00 HIFLO \T\30/60% hb 16:15 Hi flow O2\T\ 30 lpm with 60% FiO2. sv 16:30 Hi flow O2\T\30 lpm with FiO2 \T\ 60%. sv 16:45 Hi flow O2\T\30 lpm with FiO2 \T\ 60%. sv 17:00 Hi flow O2\T\30 lpm with FiO2 \T\ 60%. sv 17:15 Hi flow O2\T\30 lpm with FiO2 \T\ 60%. sv 17:30 Hi flow O2\T\30 lpm with FiO2 \T\ 60%. sv 17:45 Hi flow O2\T\30 lpm with FiO2 \T\ 60%. sv 18:00 Hi flow O2\T\30 lpm with FiO2 \T\ 60%. sv 18:15 Hi flow O2\T\30 lpm with FiO2 \T\ 60%. sv 18:30 Hi flow O2\T\30 lpm with FiO2 \T\ 60%. sv 18:45 Hi flow O2\T\30 lpm with FiO2 \T\ 60%. sv ED Course: 13:48 Patient arrived in ED. sv 13:51 Triage completed. hb 13:51 Arm band placed on. hb 13:55 Patient has correct armband on for positive identification. Placed in gown. Bed in low sv position. Call light in reach. Side rails up X2. surveillance system monitor on. Pulse ox on. NIBP on. Door closed. Head of bed elevated. 13:55 First set of blood cultures drawn by me. sv 13:57 Ernst Vargas PA is PHCP. sv 13:57 Ankur Fregoso MD is Attending Physician. sv 13:59 Maintain EMS IV. Dressing intact. Good blood return noted. Site clean \T\ dry. Gauge \T\ sv site: 20G R AC. 14:03 Vanita Boyle, ARAM is Primary Nurse. sv 14:15 COVID swab sent to lab. mh5 14:25 Burrows cath inserted, using sterile technique, 16 Fr., by me, balloon inflated, urine sv specimen collected. returned cloudy urine. 14:34 X-ray(s) taken. sv 14:38 Basic Metabolic Panel Sent. sv 14:38 Chest Single View XRAY Sent. sv 15:00 Chest Single View XRAY In Process Unspecified. EDMS 15:57 Assisted provider with central line placement. Set up central line tray. Triple lumen sv line placed in right subclavian. Line placed by Ernst PIRES Placement verified by CXR, blood return, Dressed with Tegaderm, Patient tolerated well. Before procedure, did Practitioner(s) obtain informed consent? No. Patient \T\ family education about procedure, CLABSI prevention and S/S of infection? Yes. Time-out/Briefing performed prior to start of procedure? Yes. Was handwashing/sanitizing done immediately prior to procedure? Yes. Was patient positioned to in a way to prevent air embolism? Yes. Was procedure site sterilized? Yes, with chlorhexidine. Was the site allowed to dry? Yes. Was local anesthetic and/or sedation utilized? Yes. During the procedure, did the Practitioner(s) maintain a sterile field? Yes. Were unused ports clamped during insertion? Yes. Was a 2nd qualified MD obtained after 3 unsuccessful insertion attempts? Yes. Was blood aspirated from each lumen? Yes. After the procedure, did the Practitioner(s) clean the site and apply a sterile dressing? Yes. 16:03 X-ray(s) taken. sv 16:12 Chest Single View XRAY In Process Unspecified. EDMS 16:34 Alina Johnson MD is Hospitalizing Provider. jr8 19:09 Report given to Leatha CHIU and Mode CHIU. sv 19:10 Primary Nurse role handed off by Vanita Boyle RN sv Administered Medications: 14:10 Drug: NS 0.9% (30 ml/kg) 30 ml/kg Route: IV; Rate: bolus; Site: right antecubital; hb 17:24 Follow up: Response: No adverse reaction; IV Status: Completed infusion; IV Intake: sv 3400ml 14:25 Drug: vancoMYCIN 1 grams Route: IVPB; Infused Over: 2 hrs; Site: right antecubital; hb 16:24 Follow up: Response: No adverse reaction; IV Status: Completed infusion; IV Intake: sv 250ml 14:25 Drug: Cefepime 1 grams Route: IVPB; Rate: 200 ml/hr; Infused Over: 30 mins; Site: right hb antecubital; 14:28 Follow up: Response: No adverse reaction; IV Status: Completed infusion; IV Intake: 10mlsv 14:25 Drug: Tylenol 1000 mg Route: PO; hb 14:46 Follow up: Response: No adverse reaction sv 14:52 Drug: LevaQUIN (levofloxacin) 750 mg Volume: 150 ml; Route: IVPB; Infused Over: 90 sv mins; Site: right antecubital; 16:28 Follow up: Response: No adverse reaction; IV Status: Completed infusion; IV Intake: sv 150ml 16:28 Drug: Levophed (norepinephrine) (4 mg/250 mL D5W 4 mcg/min {Note: started at 5 sv mcg/min.} Route: IV; Rate: calculated rate; Site: right subclavian; 17:24 Drug: NS 0.9% 1000 ml Route: IV; Rate: 75 ml/hr; Site: right subclavian; sv Intake: 14:28 IV: 10ml; Total: 10ml. sv 16:24 IV: 250ml; Total: 260ml. sv 16:28 IV: 150ml; Total: 410ml. sv 17:24 IV: 3400ml; Total: 3810ml. sv Outcome: 16:34 Decision to Hospitalize by Provider. ruthie 01/01 14:59 Patient left the ED. jd3 Signatures: Dispatcher [employer] EDMS Vanita Boyle RN RN Ernst Vargas PA PA [facility] Hilary Bass RN RN Ary Buchanan [facility] Haroon Mcdaniel RN RN jd3 Corrections: (The following items were deleted from the chart) 12/31 13:54 13:49 Chief complaint: EMS states: Worsening SOB x 2-3 days. SPO2 74 on RA, upper 80s hb on DuoNeb.. 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 20g RAC hb 13:55 13:49 Chief complaint: EMS states: Worsening SOB x 2-3 days. SPO2 74 on RA, upper 80s hb on DuoNeb.. 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 20g RAC hb 14:01 13:52 Pulse 92bpm; Resp 32bpm; Pulse Ox 76% RA; Temp 100.8F Temporal; Pain 0/10; hb hb 14:18 14:15 CORONAVIRUS+MR.LAB.BRZ drawn and sent. 5 EDMS 14:29 14:26 Temp 103F Catheter; hb hb 15:14 15:00 BP 80 / 42; Pulse 88bpm; Resp 18bpm; Pulse Ox 92%; Temp 101.9F Catheter; sv sv 16:15 16:00 BP 92 / 70; Pulse 89bpm; Resp 19bpm; Pulse Ox 91%; HIFLO \T\30/60%; hb hb
--- NOTE | 2020-12-31 16:35 | EDPHYS ---
Physician Documentation [facility] Name: Keely Chen Age: 60 yrs Sex: Female : 1960 Arrival Date: 12/31/2020 Time: 13:48 Bed 2 Private MD: ED Physician Ankur Fregoso HPI: 12/31 16:34 This 60 yrs old Female presents to ER via EMS with complaints of Shortness Of jr8 Breath. 16:34 The patient has shortness of breath at rest. Onset: The symptoms/episode began/occurred jr8 gradually, 2 day(s) ago, and became worse and became persistent. Duration: The symptoms are continuous. The patient's shortness of breath is aggravated by light activity, walking. Associated signs and symptoms: Pertinent positives: fever, weakness and fatigue. Severity of symptoms: At their worst the symptoms were moderate in the emergency department the symptoms are unchanged. The patient has not experienced similar symptoms in the past. The patient has not recently seen a physician. Historical: - Allergies: 13:51 No Known Allergies; hb - PMHx: 13:51 Arthritis; Fibromyalgia; HIV; neuropathy; hb - Immunization history:: Client reports receiving the 2nd dose of the Covid vaccine, Client reports receiving the 1st dose of the Covid vaccine. - Social history:: Smoking status: unknown. ROS: 16:34 ENT: Negative for injury, pain, and discharge, Neck: Negative for injury, pain, and jr8 swelling, Cardiovascular: Negative for chest pain, palpitations, and edema, Abdomen/GI: Negative for abdominal pain, nausea, vomiting, diarrhea, and constipation, Back: Negative for injury and pain, MS/Extremity: Negative for injury and deformity, Skin: Negative for injury, rash, and discoloration, Neuro: Negative for headache, weakness, numbness, tingling, and seizure. 16:34 Constitutional: Positive for fatigue, fever, malaise. 16:34 Respiratory: Positive for cough, shortness of breath. Exam: 16:34 Eyes: Pupils equal round and reactive to light, extra-ocular motions intact. Lids and jr8 lashes normal. Conjunctiva and sclera are non-icteric and not injected. Cornea within normal limits. Periorbital areas with no swelling, redness, or edema. ENT: Nares patent. No nasal discharge, no septal abnormalities noted. Tympanic membranes are normal and external auditory canals are clear. Oropharynx with no redness, swelling, or masses, exudates, or evidence of obstruction, uvula midline. Mucous membranes moist. Neck: Trachea midline, no thyromegaly or masses palpated, and no cervical lymphadenopathy. Supple, full range of motion without nuchal rigidity, or vertebral point tenderness. No Meningismus. Cardiovascular: Tachycardic with a normal S1 and S2. No gallops, murmurs, or rubs. Normal PMI, no JVD. No pulse deficits. 16:34 Abdomen/GI: Soft, non-tender, with normal bowel sounds. No distension or tympany. No guarding or rebound. No evidence of tenderness throughout. Back: No spinal tenderness. No costovertebral tenderness. Full range of motion. Skin: Warm, dry with normal turgor. Normal color with no rashes, no lesions, and no evidence of cellulitis. MS/ Extremity: Pulses equal, no cyanosis. Neurovascular intact. Full, normal range of motion. Neuro: Awake and alert, GCS 15, oriented to person, place, time, and situation. Cranial nerves II-XII grossly intact. Motor strength 5/5 in all extremities. Sensory grossly intact. 16:34 Constitutional: The patient appears alert, awake, obviously ill. 16:34 Respiratory: mild respiratory distress is noted, Respirations: tachypnea, that is mild, Breath sounds: rhonchi, that are mild, are heard diffusely. Vital Signs: 13:52 BP 75 / 53; Pulse 92; Resp 32; Temp 100.8(TE); Pulse Ox 76% on R/A; Weight 113.4 kg; hb Pain 0/10; 14:00 BP 79 / 39; Pulse 86; Resp 23; Pulse Ox 94% ; sv 14:26 Temp 103.1(C); hb 14:38 BP 83 / 44; Pulse 88; Resp 19; Pulse Ox 92% ; sv 14:53 Temp 102.6(C); sv 15:00 BP 80 / 42; Pulse 88; Resp 18; Temp 101.9(C); Pulse Ox 92% ; sv 15:30 BP 86 / 45; Pulse 85; Resp 20; Temp 100.9(C); Pulse Ox 91% ; sv 16:00 BP 92 / 70; Pulse 89; Resp 19; Temp 100.5(C); Pulse Ox 91% ; hb 16:15 BP 85 / 50; Pulse 88; Resp 21; Temp 100.3(C); Pulse Ox 90% ; sv 16:30 BP 79 / 69; Pulse 81; Resp 18; Temp 100.1; Pulse Ox 94% ; sv 16:45 BP 110 / 53; Pulse 82; Resp 19; Temp 100(C); Pulse Ox 93% ; sv 17:00 BP 102 / 60; Pulse 81; Resp 15; Pulse Ox 93% ; sv 17:15 BP 110 / 50; Pulse 82; Resp 15; Pulse Ox 92% ; sv 17:30 BP 102 / 50; Pulse 82; Resp 16; Temp 99.8(C); Pulse Ox 92% ; sv 17:45 BP 108 / 55; Pulse 82; Resp 16; Pulse Ox 92% ; sv 18:00 BP 105 / 50; Pulse 82; Resp 17; Temp 99.7(C); Pulse Ox 92% ; sv 18:15 BP 104 / 55; Pulse 80; Resp 19; Temp 99.6; Pulse Ox 93% ; sv 18:30 BP 108 / 54; Pulse 78; Resp 22; Pulse Ox 92% ; sv 18:45 BP 110 / 52; Pulse 79; Resp 17; Temp 99.5(C); Pulse Ox 93% ; sv 14:00 Hi flow O2 \T\ 30 lpm with FiO2 \T\ 60%. sv 14:38 Hi flow O2\T\30 lpm with FiO2 \T\ 60%. sv 15:00 Hi flow O2\T\30 lpm with FiO2 \T\ 60%. sv 15:30 Hi flow O2 \T\30 lpm with FiO2 \T\ 60% sv 16:00 HIFLO \T\30/60% hb 16:15 Hi flow O2\T\ 30 lpm with 60% FiO2. sv 16:30 Hi flow O2\T\30 lpm with FiO2 \T\ 60%. sv 16:45 Hi flow O2\T\30 lpm with FiO2 \T\ 60%. sv 17:00 Hi flow O2\T\30 lpm with FiO2 \T\ 60%. sv 17:15 Hi flow O2\T\30 lpm with FiO2 \T\ 60%. sv 17:30 Hi flow O2\T\30 lpm with FiO2 \T\ 60%. sv 17:45 Hi flow O2\T\30 lpm with FiO2 \T\ 60%. sv 18:00 Hi flow O2\T\30 lpm with FiO2 \T\ 60%. sv 18:15 Hi flow O2\T\30 lpm with FiO2 \T\ 60%. sv 18:30 Hi flow O2\T\30 lpm with FiO2 \T\ 60%. sv 18:45 Hi flow O2\T\30 lpm with FiO2 \T\ 60%. sv Procedures: 16:12 Central Line: the site was prepped with Betadine, in sterile fashion, a triple lumen jr8 catheter was inserted, in the right subclavian vein, in 1 attempts. placement was verified, by CXR, by blood return, the site was dressed with 4X4s, Tegaderm, foam tape, using sterile technique, the patient tolerated the procedure, well. MDM: 13:57 Patient medically screened. jr8 16:33 Data reviewed: vital signs, nurses notes, lab test result(s), EKG, radiologic studies, jr8 plain films. Data interpreted: Pulse oximetry: on room air is 79 %. Interpretation: hypoxia. Counseling: I had a detailed discussion with the patient and/or guardian regarding: the historical points, exam findings, and any diagnostic results supporting the discharge/admit diagnosis, lab results, radiology results, the need for further work-up and treatment in the hospital. ED course: Solu-medrol given prior to arrival. Will hold on that till she is admitted for next dose . 12/31 13:55 Order name: Basic Metabolic Panel 12/31 13:55 Order name: Blood Culture Adult (2) sv 12/31 13:55 Order name: CBC with Diff; Complete Time: 16:12 12/31 13:55 Order name: CPK; Complete Time: 14:50 12/31 13:55 Order name: LFT's; Complete Time: 14:50 12/31 13:55 Order name: Lactate; Complete Time: 14:50 12/31 13:55 Order name: Lipase; Complete Time: 14:50 12/31 13:55 Order name: Procalcitonin; Complete Time: 15:42 12/31 13:55 Order name: Protime (+inr); Complete Time: 14:39 sv 12/31 13:55 Order name: Ptt, Activated; Complete Time: 14:39 sv 12/31 13:55 Order name: Troponin (emerg Dept Use Only); Complete Time: 14:50 sv 12/31 13:55 Order name: Urine Microscopic Only; Complete Time: 15:17 sv 12/31 13:55 Order name: BNP; Complete Time: 14:50 sv 12/31 13:55 Order name: Magnesium; Complete Time: 14:50 sv 12/31 13:56 Order name: Basic Metabolic Panel; Complete Time: 14:50 EDMS 12/31 14:28 Order name: Urine Dipstick-Ancillary; Complete Time: 14:38 EDMS 12/31 15:13 Order name: Urine Culture EDMS 12/31 15:14 Order name: SARS-COV-2 RT PCR; Complete Time: 15:17 EDMS 12/31 16:06 Order name: CBC Smear Scan; Complete Time: 16:12 EDMS 12/31 17:31 Order name: Comprehensive Metabolic Panel EDMS 12/31 17:31 Order name: Comprehensive Metabolic Panel; Complete Time: 06:46 EDMS 12/31 17:31 Order name: Lipid Profile EDMS 12/31 17:31 Order name: Lipid Profile; Complete Time: 06:46 EDMS 12/31 17:31 Order name: Magnesium EDMS 12/31 17:31 Order name: Magnesium; Complete Time: 06:46 EDMS 12/31 17:31 Order name: Phosphorus EDMS 12/31 17:31 Order name: Phosphorus; Complete Time: 06:46 EDMS 12/31 17:32 Order name: C-Reactive Protein EDMS 12/31 17:32 Order name: C-Reactive Protein; Complete Time: 06:46 EDMS 12/31 13:55 Order name: Chest Single View XRAY; Complete Time: 15:17 sv 12/31 13:55 Order name: Cardiac monitoring; Complete Time: 14:05 sv 12/31 13:55 Order name: EKG - Nurse/Tech; Complete Time: 14:05 sv 12/31 13:55 Order name: IV Saline Lock - Large Bore; Complete Time: 14:05 sv 12/31 13:55 Order name: Labs collected and sent; Complete Time: 14:05 sv 12/31 13:55 Order name: O2 Per Protocol; Complete Time: 14:05 sv 12/31 13:55 Order name: O2 Sat Monitoring; Complete Time: 14:05 sv 12/31 13:55 Order name: Urine Dipstick-Ancillary (obtain specimen); Complete Time: 14:26 sv 12/31 15:59 Order name: Chest Single View XRAY; Complete Time: 16:32 sv 12/31 17:31 Order name: CONS Physician Consult EDMS 12/31 17:32 Order name: D-Dimer EDMS 12/31 17:32 Order name: D-Dimer; Complete Time: 06:46 EDMS 12/31 17:32 Order name: Ferritin EDMS 12/31 17:32 Order name: Ferritin; Complete Time: 06:46 EDMS 01/01 05:13 Order name: ABG Arterial Blood Gas; Complete Time: 06:46 EDMS 01/01 05:19 Order name: CBC with Automated Diff; Complete Time: 06:46 EDMS 01/01 05:56 Order name: NT PRO-BNP; Complete Time: 06:46 EDMS 01/01 06:08 Order name: Manual Differential; Complete Time: 06:46 EDMS Administered Medications: 14:10 Drug: NS 0.9% (30 ml/kg) 30 ml/kg Route: IV; Rate: bolus; Site: right antecubital; hb 17:24 Follow up: Response: No adverse reaction; IV Status: Completed infusion; IV Intake: sv 3400ml 14:25 Drug: vancoMYCIN 1 grams Route: IVPB; Infused Over: 2 hrs; Site: right antecubital; hb 16:24 Follow up: Response: No adverse reaction; IV Status: Completed infusion; IV Intake: sv 250ml 14:25 Drug: Cefepime 1 grams Route: IVPB; Rate: 200 ml/hr; Infused Over: 30 mins; Site: right hb antecubital; 14:28 Follow up: Response: No adverse reaction; IV Status: Completed infusion; IV Intake: 10mlsv 14:25 Drug: Tylenol 1000 mg Route: PO; hb 14:46 Follow up: Response: No adverse reaction sv 14:52 Drug: LevaQUIN (levofloxacin) 750 mg Volume: 150 ml; Route: IVPB; Infused Over: 90 sv mins; Site: right antecubital; 16:28 Follow up: Response: No adverse reaction; IV Status: Completed infusion; IV Intake: sv 150ml 16:28 Drug: Levophed (norepinephrine) (4 mg/250 mL D5W 4 mcg/min {Note: started at 5 sv mcg/min.} Route: IV; Rate: calculated rate; Site: right subclavian; 17:24 Drug: NS 0.9% 1000 ml Route: IV; Rate: 75 ml/hr; Site: right subclavian; sv Disposition: 16:36 Critical Care:. jr8 Disposition Summary: 12/31/20 16:34 Hospitalization Ordered Hospitalization Status: Inpatient Admission jr8 Provider: Alina Johnson Condition: Fair jr8 Problem: new jr8 Symptoms: have improved jr8 Bed/Room Type: Standard [facility] Location: Intensive Care Unit(01/01/21 13:33) Room Assignment: 4-(01/01/21 13:33) Diagnosis - Severe sepsis with septic shock jr8 - Pneumonia due to SARS-associated coronavirus jr8 - UTI/ Urinary tract infection, site not specified jr8 Forms: - Medication Reconciliation Form jr8 - SBAR form jr8 Critical care time excluding procedures: 16:36 Critical care time: Bedside Care: 20 minutes, Consultation: 10 minutes, Family jr8 Intervention: 5 minutes. Total time: 35 minutes Addendum: 01/03/2021 06:46 Co-signature as Attending Physician, Ankur Fregoso MD I agree with the assessment and c white plan of care. Signatures: Dispatcher [employer] EDVanita Keller RN RN Evonne Holley RN ARAM Amy Alvarado RN Ankur Wilson MD MD cha Roszak, Josh, PA [facility] Hilary Bass RN RN Corrections: (The following items were deleted from the chart) 12/31 14:18 13:56 CORONAVIRUS+MR.LAB.BRZ ordered. EDMS EDMS 16:13 16:06 Chest Single View+RAD.RAD.BRZ ordered. EDMS EDMS 20:07 16:34 Int[facility] Unit [facility] 20:07 16:34 jr8 01/01 13:33 07 20:07 [facility] ER HOLD [facility] 01/01 13:33 12/31 20:07 ERHOLD- [facility]
[2020-12-31] MEDS ORDERED: ONDANSETRON 4 MG/2 ML VIAL IV PRN (17:22)
[2020-12-31] MEDS ORDERED: ALBUTEROL 2.5 MG/3 ML NEB SOL NEB PRN (17:22)
[2020-12-31] MEDS ORDERED: NA CHLORIDE 0.9% 1,000 ML ONE (17:44)
[2020-12-31] MEDS: NA CHLORIDE 0.9% 1,000 ML IV SCH (18:00)
[2020-12-31] MEDS ORDERED: VANCOMYCIN 2.5 GM in NA CHLORIDE 0.9% 500 ML IVPB ONE (18:00)
[2020-12-31] MEDS ORDERED: VANCOMYCIN 1.5 GM in NA CHLORIDE 0.9% 500 ML IVPB ONE (18:30)
[2020-12-31] MEDS: HEPARIN 5000 UNIT/ML 1 ML VIAL SQ SCH (19:00)
[2020-12-31] MEDS: METHYLPREDNISOLONE 40 MG INJ IV SCH (21:00)
[2020-12-31] MEDS ORDERED: HEPARIN 5000 UNIT/ML 1 ML VIAL ONE (22:49)
[2020-12-31] MEDS ORDERED: METHYLPREDNISOLONE 40 MG INJ ONE (22:50)
[2021-01-01] MEDS: ACETAMINOPHEN 500 MG TAB PO PRN (01:15)
[2021-01-01 05:05] LABS: Arterial Blood Carboxyhemoglob 0.8 % (0-1.5); Blood Gas Oxyhemoglobin 94.3 % (94-97); Blood O2 Saturation 96.1 % (92-98.5)
[2021-01-01 05:09] LABS: Absolute Lymphocytes (CBC) 0.8 K/uL (0.7-4.9); Basophils % 0.2 % (0-1.3); Hematocrit 40.7 % (36.0-45.0); Lymphocytes % 11.3 % (15.3-44.8); MPV 9.9 fL (7.6-11.3); RBC Red Blood Cell Count 4.71 M/uL (3.86-4.86)
[2021-01-01 05:55] LABS: ALT/SGPT 29 U/L (12-78); AST/SGOT 48 U/L (15-37); Albumin 2.3 g/dL (3.4-5.0); Alkaline Phosphatase 50 U/L (45-117); BUN Blood Urea Nitrogen 28 mg/dL (7-18); Bicarbonate 24 mmol/L (21-32); Bilirubin Total 0.5 mg/dL (0.2-1.0); Ferritin 231.1 ng/mL (8-388); Glucose Level 115 mg/dL (74-106); HDL Cholesterol 57 mg/dL (40-60); Magnesium 2.1 mg/dL (1.8-2.4); NT PRO-BNP 7858 pg/mL (<125); Phosphorus 3.2 mg/dL (2.5-4.9); Potassium 4.4 mmol/L (3.5-5.1); Protein, Total 5.7 g/dL (6.4-8.2); Sodium Level 139 mmol/L (136-145)
[2021-01-01 06:08] LABS: Anisocytosis 1+; Blood Morphology Comment NOTED (NOT SEEN); Platelet Estimate DECR
[2021-01-01] MEDS: HEPARIN 5000 UNIT/ML 1 ML VIAL SQ SCH (07:00)
[2021-01-01] MEDS: NA CHLORIDE 0.9% 1,000 ML IV SCH ×2 (07:20→16:10)
[2021-01-01] MEDS ORDERED: HEPARIN 5000 UNIT/ML 1 ML VIAL ONE (07:50)
[2021-01-01] MEDS ORDERED: METHYLPREDNISOLONE 40 MG INJ ONE (07:51)
[2021-01-01] MEDS ORDERED: AZITHROMYCIN 500 MG INJ IVPB ONE (07:51)
[2021-01-01] MEDS ORDERED: NA CHLORIDE 0.9% 1,000 ML ONE (07:51)
[2021-01-01] MEDS ORDERED: NA CHLORIDE 0.9% 250 ML ONE (07:51)
[2021-01-01] MEDS ORDERED: ENOXAPARIN 40 MG/0.4 ML SQ SCH (09:00)
[2021-01-01] MEDS: METHYLPREDNISOLONE 40 MG INJ IV SCH ×2 (09:00→20:27)
[2021-01-01] MEDS: AZITHROMYCIN IV 500 MG in NA CHLORIDE 0.9% 250 ML IVPB SCH (09:20)
[2021-01-01] MEDS ORDERED: NOREPINEPHRINE 4 MG in D5W 250 ML IV PRN (09:23)
--- NOTE | 2021-01-01 11:28 | P.CNS ---
Date of Consult: 01/01/21 (Pt agred to TV) Reason for Consult: COVID penumonia Chief Complaint: SOB History of Present Illness: Pt AW COVID penumonia HXof COPD/ SOB and cough/ complaint wtin inhalers atome/ aW low BP and hypoxemia Allergies No Known Allergies Allergy (Unverified 03/20/12 19:45) - Past Medical/Surgical History -: copd -: HIV -: Fibromyalgia -: Neuralgi Review of Systems Respiratory: Cough, Shortness of Breath Physical Examination Temp Pulse Resp BP Pulse Ox 98.5 F 74 16 112/57 L 97 01/01/21 07:51 01/01/21 07:51 01/01/21 07:51 01/01/21 07:51 01/01/21 07:51 General: Alert, In no apparent distress, Oriented x3, Mild distress Laboratory Data (last 24 hrs) 12/31/20 13:55: PT 13.3 H, INR 1.15, APTT 32.3 12/31/20 13:55: WBC 12.20 H, Hgb 13.7, Hct 43.7, Plt Count 90 L 12/31/20 13:55: Sodium 139, Potassium 4.5, BUN 25 H, Creatinine 2.67 H, Glucose 99, Magnesium 2.6 H, Total Bilirubin 0.6, AST 51 H, ALT 36, Alkaline Phosphatase 89, Lipase 40 L - Problems (1) Pneumonia due to COVID-19 virus Current Visit: Yes Status: Acute Plan: Pt is 60 AW COVID penumonai. HX of COPD/ renal failure/ Hx of COPD. if BC neg DC Vanc/CXRY COVID penumonia/ CW IV fluids
[2021-01-01] MEDS: ARFORMOTEROL TARTRATE 15 MCG/2 ML VIAL.NEB NEB SCH ×2 (11:32→20:05)
[2021-01-01] MEDS: BARICITINIB 2 MG TABLET PO SCH (13:00)
[2021-01-01] MEDS: IVERMECTIN 3 MG TABLET PO SCH (13:00)
[2021-01-01] MEDS: ENOXAPARIN 40 MG/0.4 ML SQ SCH (16:10)
[2021-01-01] MEDS ORDERED: ALBUMIN HUMAN 25% 100 ML IV ONE (16:16)
--- NOTE | 2021-01-01 16:18 | P.HP ---
Certification for Inpatient Patient admitted to: Inpatient With expected LOS: >2 Midnights Patient will require the following post-hospital care: None Practitioner: I am a practitioner with admitting privileges, knowledge of patient current condition, hospital course, and medical plan of care. Services: Services provided to patient in accordance with Admission requirements found in Title 42 Section 412.3 of the Code of Federal Regulations Patient History Date of Service: 12/31/20 Reason for admission: SOB History of Present Illness: Patient is a 60-year-old female comes to the hospital with difficulty breathing. Patient when short of breath and having coughing congestion. Patient came into the emergency room for further evaluation. In the emergency room she was hypoxic and placed on a BiPAP. Her room air O2 sat was 79%. She has a history of HIV. She states her CD4 count is in the 600 in the viral load is undetectable. She is very confucianist with taking her medications. On likely to having opportunistic infection and most of this must be from COVID-19 pneumonia. She will be admitted to the hospital for further evaluation. Allergies No Known Allergies Allergy (Unverified 03/20/12 19:45) Home Medications: Albuterol Sulfate [Proair Respiclick] 90 mcg IN Q4H PRN 01/01/21 Bupropion *Xl* [Wellbutrin XL*] 300 mg PO DAILY 01/01/21 Calcium Carbonate 1,000 mg PO BID 01/01/21 Cholecalciferol (Vitamin D3) [Vitamin D3] 2,000 unit PO BID 01/01/21 Cyanocobalamin (Vitamin B-12) [Vitamin B12] 1,000 mcg PO DAILY 01/01/21 Dolutegravir Sodium [Tivicay] 50 mg PO DAILY 01/01/21 Emtricitabine/Tenofov Alafenam [Descovy 200-25 mg Tablet] 1 each PO DAILY 01/01/21 Furosemide 40 mg PO BID 01/01/21 Ibandronate Sodium 150 mg PO DIRECTED 01/01/21 Magnesium Oxide 800 mg PO DAILY 01/01/21 Potassium Cl [Klor-Con 8] 20 meq PO BID 01/01/21 Pregabalin [Lyrica] 300 mg PO BID 01/01/21 Salmeterol Xinafoate [Serevent Diskus] 50 mcg IH Q12H 01/01/21 Vortioxetine Hydrobromide [Trintellix] 20 mg PO DAILY 01/01/21 calcitrioL [Rocaltrol] 0.25 mcg PO M,W,F 01/01/21 - Past Medical/Surgical History Has patient received pneumonia vaccine in the past: Yes -: copd -: HIV -: Fibromyalgia -: Neuralgi - Family History Father Family History: Reviewed- Non-Contributory - Social History Smoking Status: Unknown if ever smoked Review of Systems 10-point ROS is otherwise unremarkable Physical Examination - Vital Signs Temperature: 96.7 F Blood Pressure: 120/88 Pulse: 80 Respirations: 19 Pulse Ox (%): 94 - Physical Exam General: Alert, In no apparent distress, Oriented x3 HEENT: Atraumatic, PERRLA, Mucous membr. moist/pink, EOMI, Sclerae nonicteric Neck: Supple, 2+ carotid pulse no bruit, No LAD, Without JVD or thyroid abnormality Respiratory: Diminished Cardiovascular: Regular rate/rhythm, Normal S1 S2, No murmurs Gastrointestinal: Normal bowel sounds, Soft and benign, Non-distended, No t enderness Musculoskeletal: No clubbing, No swelling, No tenderness Integumentary: No rashes Neurological: Normal gait, Normal speech, Normal strength at 5/5 x4 extr, Normal tone, Sensation intact, Cranial nerves 3-12 intact, Normal affect Lymphatics: No axilla or inguinal lymphadenopathy Assessment & Plan - Problems (Diagnosis) (1) HIV (human immunodeficiency virus infection) Current Visit: Yes Status: Acute (2) Hypotension Current Visit: Yes Status: Acute (3) Elevated procalcitonin Current Visit: Yes Status: Acute (4) Acute kidney injury Current Visit: Yes Status: Acute (5) Pneumonia due to COVID-19 virus Current Visit: Yes Status: Acute - Plan 1. Continue with IV steroids and IV antibiotics 2. Monitor inflammatory markers/consider baricitinib 3. Repeat chest x-ray is symptoms are progressively worsening 4. O2 per protocol 5. Pulmonary consultation 6. Continue with albuterol inhaler therapy; also supportive care 7. Monitor LFTs 8. Repeat HIV CD4 count and viral load; continue azithromycin- PCP; his CD4 count is accurate per patient's recollection then does not need this 9. Wean off vasopressor support 10. GI and DVT prophylaxis Discharge Plan: Home Plan to discharge in: Greater than 2 days - Advance Directives Does patient have a Living Will: No Does patient have a Durable POA for Healthcare: No - Code Status/Comfort Care Code Status Assessed: Yes Code Status: Full Code Critical Care: Yes Time Spent Managing PTS Care (In Minutes): 45
[2021-01-02 05:35] LABS: Ferritin 300.8 ng/mL (8-388); Potassium 4.8 mmol/L (3.5-5.1)
[2021-01-02] MEDS: ARFORMOTEROL TARTRATE 15 MCG/2 ML VIAL.NEB NEB SCH ×2 (06:00→19:30)
[2021-01-02] MEDS: NA CHLORIDE 0.9% 1,000 ML IV SCH ×2 (06:06→19:41)
--- NOTE | 2021-01-02 08:33 | P.PN ---
Subjective Date of Service: 01/01/21 Patient is feeling better. Clinically looks to be doing much better. Spoke to patient and states she is very compliant with her HIV medications. Weaning off of the Levophed. Review of Systems 10-point ROS is otherwise unremarkable Physical Examination - Vital Signs Temperature: 97.7 F Blood Pressure: 89/53 Pulse: 117 Respirations: 15 Pulse Ox (%): 91 - Physical Exam General: Alert, In no apparent distress, Oriented x3 Respiratory: Clear to auscultation bilaterally, Normal air movement Cardiovascular: Regular rate/rhythm, Normal S1 S2 Gastrointestinal: Normal bowel sounds, Soft and benign, Non-distended Musculoskeletal: No clubbing, No swelling Neurological: Sensation intact Assessment & Plan - Problems (Diagnosis) (1) Septic shock Current Visit: Yes Status: Acute (2) HIV (human immunodeficiency virus infection) Current Visit: Yes Status: Acute (3) Hypotension Current Visit: Yes Status: Acute (4) Elevated procalcitonin Current Visit: Yes Status: Acute (5) Acute kidney injury Current Visit: Yes Status: Acute (6) Pneumonia due to COVID-19 virus Current Visit: Yes Status: Acute - Plan Continue with plan of care as mentioned below next on 1. Continue with IV steroids and IV antibiotics 2. Monitor inflammatory markers/started baricitinib 3. Repeat x-ray with no improvement 4. O2 per protocol 5. Pulmonary consultation appreciated 6. Continue with albuterol inhaler therapy; also supportive care 7. Repeat HIV CD4 count and viral load; continue azithromycin- PCP; his CD4 count is accurate per patient's recollection then does not need this 8. Wean off vasopressor support 9. GI and DVT prophylaxis Discharge Plan: Home Plan to discharge in: Greater than 2 days - Advance Directives Does patient have a Living Will: No Does patient have a Durable POA for Healthcare: No - Code Status/Comfort Care Code Status: Full Code Critical Care: No Time Spent Managing PTS Care (In Minutes): 35
[2021-01-02] MEDS ORDERED: DIGOXIN 0.25 MG/ML AMP IV ONE (09:00)
[2021-01-02] MEDS ORDERED: NA CHLORIDE 0.9% 250 ML IV ONE (09:00)
[2021-01-02] MEDS ORDERED: ALBUMIN HUMAN 25% 100 ML IV ONE (09:00)
[2021-01-02] MEDS: METHYLPREDNISOLONE 40 MG INJ IV SCH ×2 (09:04→19:40)
--- NOTE | 2021-01-02 09:17 | P.PN ---
Date of Service: 01/02/21 Subjective Patient went into atrial fibrillation with rapid ventricular response. Renal function elevated. Acute kidney injury. Continue with current plan of care at this time. Otherwise, patient is doing well. Patient been weaned off of vasopressors. Patient is oxygenating better. Will need to get physical therapy to get patient out of bed and start ambulating. Weaning her oxygen level down as well as she is only on 4-5 L. if her strength improves and we can get her on 3 4 L of oxygen we may be able to work on discharge planning. Review of Systems 10-point ROS is otherwise unremarkable Physical Examination - Vital Signs Reviewed - Physical Exam General: Alert, In no apparent distress, Oriented x3 Respiratory: Clear to auscultation bilaterally, Normal air movement Cardiovascular: Irregularly irregular rate and rhythm Gastrointestinal: Normal bowel sounds, Soft and benign, Non-distended Musculoskeletal: No clubbing, No swelling Assessment & Plan - Problems (Diagnosis) (1) Septic shock Current Visit: Yes Status: Acute (2) HIV (human immunodeficiency virus infection) Current Visit: Yes Status: Acute (3) Hypotension Current Visit: Yes Status: Acute (4) Elevated procalcitonin Current Visit: Yes Status: Acute (5) Acute kidney injury Current Visit: Yes Status: Acute (6) Pneumonia due to COVID-19 virus Current Visit: Yes Status: Acute (7) Atrial fibrillation with rapid ventricular response Current Visit: Yes Status: Acute - Plan Continue with plan of care as mentioned below next on 1. Continue with IV steroids and IV antibiotics; continue with hydration 2. Started baricitinib 3. Continue with medication for rate control and anti coagulation. 4. Weaned off of vasopressor; weaning down oxygen 5. Pulmonary consultation appreciated 6. Continue with albuterol inhaler therapy; also supportive care 7. Repeat HIV CD4 count and viral load; continue azithromycin- PCP; his CD4 count is accurate per patient's recollection then does not need this 8. GI and DVT prophylaxis Discharge Plan: Home Plan to discharge in: Greater than 2 days - Advance Directives Does patient have a Living Will: No Does patient have a Durable POA for Healthcare: No - Code Status/Comfort Care Code Status: Full Code Critical Care: Yes Time Spent Managing PTS Care (In Minutes): 35
[2021-01-02] MEDS: AZITHROMYCIN IV 500 MG in NA CHLORIDE 0.9% 250 ML IVPB SCH (09:32)
[2021-01-02] MEDS: BARICITINIB 2 MG TABLET PO SCH (13:41)
[2021-01-02] MEDS: IVERMECTIN 3 MG TABLET PO SCH (13:42)
[2021-01-02] MEDS: ACETAMINOPHEN 500 MG TAB PO PRN ×2 (13:49→19:41)
[2021-01-02] MEDS: ENOXAPARIN 40 MG/0.4 ML SQ SCH (16:53)
[2021-01-02] MEDS ORDERED: VANCOMYCIN 2 GM in NA CHLORIDE 0.9% 500 ML IVPB SCH (17:00)
[2021-01-02] MEDS ORDERED: GUAIFENESIN/CODEINE 5ML UCUP PO PRN (20:01)
[2021-01-03] MEDS: GUAIFENESIN/CODEINE 5ML UCUP PO PRN ×4 (01:51→15:00)
[2021-01-03] MEDS: ACETAMINOPHEN 500 MG TAB PO PRN (02:52)
[2021-01-03 05:18] LABS: Absolute Lymphocytes (CBC) 0.3 K/uL (0.7-4.9); Hematocrit 36.9 % (36.0-45.0); Lymphocytes % 4.4 % (15.3-44.8); MPV 9.9 fL (7.6-11.3); RBC Red Blood Cell Count 4.31 M/uL (3.86-4.86)
--- NOTE | 2021-01-03 05:54 | P.PN ---
Subjective Date of Service: 01/03/21 Chief Complaint: SOB Subjective: Other (Patient had increase oxygen use this morning. Patient found to have 40% left sided pneumothorax) Physical Examination - Vital Signs Temperature: 96.8 F Blood Pressure: 113/65 Pulse: 77 Respirations: 20 Pulse Ox (%): 95 - Studies Microbiology Data (last 24 hrs): 12/31/20 14:25 Clean Catch Urine [place] Count - Final >100,000 CFU/ML. 12/31/20 14:25 Clean Catch Urine - Final MIXED JORDANA. Assessment & Plan Discharge Plan: Home Physician Review Additional Text: Initial CXR: COMPARISON: December 31 TECHNIQUE: AP portable chest image was obtained 12/31/2020 4:12 pm . FINDINGS: Right subclavian central line has been placed. Tip is at the distal SVC. No pneumothorax. Left greater than right lung parenchymal opacification present similar to earlier in the day. Heart and vasculature are normal. No measurable pleural effusion and no pneumothorax. No acute bony abnormality seen. No acute aortic findings suspected. IMPRESSION: Right subclavian central line placement with tip in the distal SVC. No pneumothorax. Follow up CXR COMPARISON: December 31 TECHNIQUE: AP portable chest image was obtained 01/03/2021 8:53 am . FINDINGS: Left-sided pneumothorax is now present estimated at 40%. No tension pneumothorax findings. Dense left upper lobe consolidated parenchyma seen similar to comparison. Less prominent left lower lobe opacification stable as well. Patchy right lung parenchymal opacification similar to comparison. Right-sided Port-A-Cath has not changed position. Heart size is stable. No enlarging pleural effusion. No acute bony abnormality seen. No acute aortic findings suspected. IMPRESSION: Approximately 40% left-side pneumothorax has developed since the December 31 comparison study. Left greater than right lung parenchymal opacification not significantly different. Follow up CXR post chest tube: COMPARISON: January 03 TECHNIQUE: AP portable chest image was obtained 01/03/2021 10:18 am . FINDINGS: Chest tube has been placed entering the lower left chest and extend ing to the medial suprahilar region. Pneumothorax has reduced substantially but not fully resolved. Approximately 10% pneumothorax left apex remains. Subcutaneous emphysema is present. Remainder the chest has shown no place change roof bolter the short interval. IMPRESSION: Left chest tube in good position. Pneumothorax has reduced with a remnant 10% apical pneumothorax remaining. Physical Exam: General: Patient with mild distress. Respiratory: Decreased air movement bilateral. Chest tube now in place. Cardiovascular: Normal sinus rhythm. Gastrointestinal: Normal bowel sounds, Soft and benign, Non-distended Musculoskeletal: No clubbing, No swelling Impression: Septic shock secondary bilateral Covid pneumonia complicated with 40% left-sided pneumothorax status post chest tube placement COPD HIV Acute renal injury Paroxysmal atrial fibrillation with RVR Depression with anxiety Chronic pain with neuropathy Plan: Septic shock secondary bilateral Covid pneumonia complicated with 40% left-sided pneumothorax status post chest tube placement: Pneumothorax was identified this morning. Case discussed in detail with pulmonology and surgery. Surgery performed chest tube placement for pneumothorax. Patient stable at this time. Case also discussed with anesthesia. No need for intubation at this time as the patient remained stable after chest tube placement. Case discussed with pulmonology concerning this. We will monitor the patient closely. Recheck chest x-ray again this afternoon to monitor closely. Continue with chest tube monitoring. Recheck chest x-ray tomorrow. Patient currently on high flow. If her condition declines patient may need to be intubated. We will monitor this closely. Continue with IV Solu-Medrol. Continue with vitamin supplementation. Patient not on any type of antibiotics at this time. Blood cultures negative. Baricitinib added. Will monitor the patient closely. COPD: Continue COPD medication. Continue as above. HIV: Continue with HIV medication Acute renal injury: Continue with IV fluids. Paroxysmal atrial fibrillation with RVR: Patient now in sinus rhythm. We will monitor this closely. Depression with anxiety: Restart home medication Trintellix and bupropion. Chronic pain with neuropathy: Will provide medication for pain. Restart Lyrica. DVT prophylaxis: Lovenox Code Status: Full code Advanced care planning-30 minutes: Home at discharge Time Spent Managing Pts Care (In Minutes): 55
[2021-01-03 06:05] LABS: Albumin 2.5 g/dL (3.4-5.0); Bilirubin Total 0.4 mg/dL (0.2-1.0); Magnesium 2.5 mg/dL (1.8-2.4); Potassium 4.5 mmol/L (3.5-5.1); Protein, Total 5.8 g/dL (6.4-8.2)
[2021-01-03] MEDS: NA CHLORIDE 0.9% 1,000 ML IV SCH ×2 (06:17→07:26)
[2021-01-03] MEDS ORDERED: LIDOCAINE 4% PATCH TOP PRN (07:25)
[2021-01-03] MEDS: ARFORMOTEROL TARTRATE 15 MCG/2 ML VIAL.NEB NEB SCH ×2 (08:45→20:10)
[2021-01-03] MEDS: METHYLPREDNISOLONE 40 MG INJ IV SCH ×2 (09:00→20:08)
--- NOTE | 2021-01-03 09:02 | RAD REPORT ---
EXAM DESCRIPTION: RAD - Chest Single View - 01/03/2021 8:53 am CLINICAL HISTORY: SOB COMPARISON: December 31 TECHNIQUE: AP portable chest image was obtained 01/03/2021 8:53 am . FINDINGS: Left-sided pneumothorax is now present estimated at 40%. No tension pneumothorax findings. Dense left upper lobe consolidated parenchyma seen similar to comparison. Less prominent left lower l obe opacification stable as well. Patchy right lung parenchymal opacification similar to comparison. Right-sided Port-A-Cath has not changed position. Heart size is stable. No enlarging pleural effusion. No acute bony abnormality seen. No acute aortic findings suspected. Findings telephoned to the referring physician 8:55 a.m. IMPRESSION: Approximately 40% left-side pneumothorax has developed since the December 31 comparison stud y. Left greater than right lung parenchymal opacification not significantly different.
--- NOTE | 2021-01-03 09:13 | P.PN ---
Subjective Date of Service: 01/03/21 Chief Complaint: Resp failure with left sided penumothorax Conditon worsened/ NEeds to be intubated and left sided chest tube Review of Systems is unable to be obtained Physical Examination - Vital Signs Temperature: 96.8 F Blood Pressure: 104/63 Pulse: 80 Respirations: 20 Pulse Ox (%): 91 - Physical Exam General: Moderate distress - Studies Microbiology Data (last 24 hrs): 12/31/20 14:25 Clean Catch Urine [place] Count - Final >100,000 CFU/ML. 12/31/20 14:25 Clean Catch Urine - Final MIXED JORDANA. Assessment & Plan - Problems (Diagnosis) (1) Pneumonia due to COVID-19 virus Current Visit: Yes Status: Acute Plan: Worse/ To be intubated/ labs reviwed/ (2) Pneumothorax Current Visit: Yes Status: Acute Plan: Developed COVID penumothorax/ Chest tube Qualifiers: Pneumothorax type: spontaneous, secondary Qualified Code(s): J93.12 - Secondary spontaneous pneumothorax Physician Review Additional Text: Physical Exam: General: Alert, In no apparent distress, Oriented x3 Respiratory: Clear to auscultation bilaterally, Normal air movement Cardiovascular: Irregularly irregular rate and rhythm Gastrointestinal: Normal bowel sounds, Soft and benign, Non-distended Musculoskeletal: No clubbing, No swelling Impression: (1) Septic shock Current Visit: Yes Status: Acute (2) HIV (human immunodeficiency virus infection) Current Visit: Yes Status: Acute (3) Hypotension Current Visit: Yes Status: Acute (4) Elevated procalcitonin Current Visit: Yes Status: Acute (5) Acute kidney injury Current Visit: Yes Status: Acute (6) Pneumonia due to COVID-19 virus Current Visit: Yes Status: Acute (7) Atrial fibrillation with rapid ventricular response Current Visit: Yes Status: Acute Plan: Continue with plan of care as mentioned below next on 1. Continue with IV steroids and IV antibiotics; continue with hydration 2. Started baricitinib 3. Continue with medication for rate control and anti coagulation. 4. Weaned off of vasopressor; weaning down oxygen 5. Pulmonary consultation appreciated 6. Continue with albuterol inhaler therapy; also supportive care 7. Repeat HIV CD4 count and viral load; continue azithromycin- PCP; his CD4 count is accurate per patient's recollection then does not need this 8. GI and DVT prophylaxis DVT prophylaxis: Code Status: Advanced care planning-30 minutes:
[2021-01-03] MEDS ORDERED: RSI MEDICATION KIT IV ONE (09:21)
[2021-01-03] MEDS ORDERED: propofoL 200 MG/20 ML VIAL IV ONE (09:53)
[2021-01-03] MEDS ORDERED: SUCCINYLCHOLINE 20 MG/ML (10 ML) IV ONE (09:55)
[2021-01-03] MEDS ORDERED: TRAMADOL HCL 50 MG TAB PO PRN (09:59)
[2021-01-03] MEDS: HYDROMORPHONE HCL 0.5 MG/0.5 ML INJ IV PRN ×2 (10:18→18:45)
--- NOTE | 2021-01-03 10:25 | RAD REPORT ---
EXAM DESCRIPTION: RAD - Chest Single View - 01/03/2021 10:18 am CLINICAL HISTORY: chest tube placement COMPARISON: January 03 TECHNIQUE: AP portable chest image was obtained 01/03/2021 10:18 am . FINDINGS: Chest tube has been placed entering the lower left chest and extending to the medial supra hilar region. Pneumothorax has reduced substantially but not fully resolved. Approximately 10% pneumo thorax left apex remains. Subcutaneous emphysema is present. Remainder the chest has shown no exchange mechanic the short interval. IMPRESSION: Left chest tube in good position. Pneumothorax has reduced with a remnant 10% apical pneumothorax remaining.
[2021-01-03] MEDS: HYDROCODONE/APAP 7.5/325 MG TAB PO PRN ×2 (10:28→16:41)
--- NOTE | 2021-01-03 12:06 | CON ---
Date of Consultation: 01/03/2021 Reason For Consultation: Pneumothorax, the patient in respiratory distress. History Of Present Illness: The patient is a 60-year-old female, who came in to the emergency room 2 days ago with shortness of breath and workup revealed COVID pneumonia. She has a history of HIV wit h her CD4 count in the 600s; however, her HIV virus load is undetectable and she appears to have a CO VID with pneumonia, was being treated. Chest x-ray done this morning and she was found to have a 40% pneumothorax on the left side and I was asked to place a chest tube. She is saturating in the low 9 0s on oxygen. She is awake, alert, in respiratory distress however. Review of Systems: Otherwise unremarkable. Past Medical History: Significant for HIV, COPD, depression, anxiety, neuropathy, fibromyalgia. Past Surgical History: Cholecystectomy, gastric bypass, right ankle surgery, hernia surgery, tubal l igation. Allergies: NO ALLERGIES. Social History: Has smoked in the past, does not currently. Family History: Noncontributory. Physical Examination: Vital Signs: Stable right now, but she saturating in the low 90s. She is afebrile. General: She is awake and alert, in respiratory distress. Head and Neck: No masses. Trachea is midline. No JVD. Chest: Diminished breath sound on the left side. Heart: S1 and S2. Abdomen: Soft. Extremities: Neurovascularly intact. Neuro: Nonfocal. Laboratory Data: Chest x-ray reviewed shows a 40% left-sided pneumothorax. Laboratory data reviewed after the procedure was done and her white count is normal. She does have low platelets at 94,000, left shift, and her INR is 1.15. Chemistry reviewed as well. Assessment: Left pneumothorax and the patient with COVID pneumonia. Recommendations: We will put a stat chest tube in. Informed consent obtained. The patient understo od the risks, benefits, and alternatives and agrees. Procedure Note: The patient was prepped and draped in usual sterile fashion. Lidocaine 1% infiltrat ed in the midaxillary line in the left side and the fourth intercostal space. A 2 cm incision was ma de. Subcutaneous tissue was divided and peritoneal cavity was entered with sharp and blunt dissectio n. A 24-N[place] chest tube placed and secured with #1 Vicryl. The wound itself closed with #1 Vicryl . Then, a sterile occlusive dressing applied. Air exited when the pleural cavity was entered. Ther e was milkish and reddish serosanguineous fluid approximately 100 mL that came out. The patient tole rated the procedure in stable condition and chest x-ray has been ordered. DEEDEE/MODKatie Voice ID: [id number] Report ID: [id number]
[2021-01-03] MEDS: BARICITINIB 2 MG TABLET PO SCH (13:46)
--- NOTE | 2021-01-03 16:15 | RAD REPORT ---
EXAM DESCRIPTION: RAD - Chest Single View - 01/03/2021 4:08 pm CLINICAL HISTORY: Repeat to evaluate pneumothorax Chest pain. COMPARISON: Chest Single View dated 01/03/2021; Chest Single View dated 01/03/2021; Chest Single View da viola 12/31/2020; Chest Single View dated 12/31/2020 FINDINGS: Portable technique limits examination quality. Left-sided chest tube is in place. The left apical pneumothorax has mildly increased since comparativ e study estimated 20-25% of lung volume. Right-sided venous catheter is unchanged in position. The he art size is moderately enlarged.Bilateral pulmonary opacities appear stable. IMPRESSION: Mild size increase in the left-sided pneumothorax since comparative study.
[2021-01-03] MEDS: ENOXAPARIN 40 MG/0.4 ML SQ SCH (16:41)
[2021-01-03] MEDS: PREGABALIN 150 MG CAP PO SCH (20:07)
[2021-01-03] MEDS ORDERED: PREGABALIN 300 MG PO SCH (21:00)
[2021-01-04] MEDS: NA CHLORIDE 0.9% 1,000 ML IV SCH (01:52)
[2021-01-04] MEDS: HYDROMORPHONE HCL 0.5 MG/0.5 ML INJ IV PRN (05:29)
[2021-01-04 05:46] VITALS: BMI 41.5
--- NOTE | 2021-01-04 05:54 | P.PN ---
Subjective Date of Service: 01/04/21 Chief Complaint: SOB Subjective: Other (Patient with increased sedation this morning. Patient was not alert. ABG obtained. Patient given Narcan.) Physical Examination - Vital Signs Temperature: 97.8 F Blood Pressure: 149/80 Pulse: 105 Respirations: 17 Pulse Ox (%): 94 Assessment & Plan Discharge Plan: Transfer Plan to discharge in: 48 Hours Physician Review Additional Text: Initial CXR: COMPARISON: December 31 TECHNIQUE: AP portable chest image was obtained 12/31/2020 4:12 pm . FINDINGS: Right subclavian central line has been placed. Tip is at the distal S VC. No pneumothorax. Left greater than right lung parenchymal opacification present similar to earlier in the day. Heart and vasculature are normal. No measurable pleural effusion and no pneumothorax. No acute bony abnormality seen. No acute aortic findings suspected. IMPRESSION: Right subclavian central line placement with tip in the distal SVC. No pneumothorax. Follow up CXR COMPARISON: December 31 TECHNIQUE: AP portable chest image was obtained 01/03/2021 8:53 am . FINDINGS: Left-sided pneumothorax is now present estimated at 40%. No tension pneumothorax findings. Dense left upper lobe consolidated parenchyma seen similar to comparison. Less prominent left lower lobe opacification stable as well. Patchy right lung parenchymal opacification similar to comparison. Right-sided Port-A-Cath has not changed position. Heart size is stable. No enlarging pleural effusion. No acute bony abnormality seen. No acute aortic findings suspected. IMPRESSION: Approximately 40% left-side pneumothorax has developed since the December 31 comparison study. Left greater than right lung parenchymal opacification not significantly different. Follow up CXR post chest tube: COMPARISON: January 03 TECHNIQUE: AP portable chest image was obtained 01/03/2021 10:18 am . FINDINGS: Chest tube has been placed entering the lower left chest and extending to the medial suprahilar region. Pneumothorax has reduced substantially but not fully resolved. Approximately 10% pneumothorax left apex remains. Subcutaneous emphysema is present. Remainder the chest has shown no record changer assembler the short interval. IMPRESSION: Left chest tube in good position. Pneumothorax has reduced with a remnant 10% apical pneumothorax remaining. Follow up CXR after intubation: COMPARISON: Chest Single View dated 01/04/2021; Chest Single View dated 01/03/2021; Chest Single View dated 01/03/2021; Chest Single View dated 01/03/2021 FINDINGS: Interval placement of an endotracheal tube which is approximately 3 centimeters above the jens. NG tube below the level of the diaphragm. Similar size of the left-sided pneumothorax and widespread airspace disease is similar as well. Right subclavian approach central venous line. Subcutaneous emphysema. IMPRESSION: Endotracheal tube in satisfactory position approximately 3 centimeters above the jens. NG tube below the diaphragm. Left-sided pneumothorax unchanged. Physical Exam: General: Patient now intubated and sedated. Respiratory: Decreased air movement bilateral. Chest tube now in place. Cardiovascular: Normal sinus rhythm. Gastrointestinal: Normal bowel sounds, Soft and benign, Non-distended Musculoskeletal: No clubbing, No swelling Impression: Septic shock secondary acute respiratory failure with hypercapnia related to bilateral Covid pneumonia complicated with 40% left-sided pneumothorax status post chest tube placement COPD HIV Acute renal failure Paroxysmal atrial fibrillation with RVR Depression with anxiety Chronic pain with neuropathy Plan: Septic shock secondary acute respiratory failure with hypercapnia related to bilateral Covid pneumonia complicated with 40% left-sided pneumothorax status post chest tube placement: Patient was obtunded this morning. Patient given Narcan. ABG showed respiratory acidosis. Case discussed with pulmonology. Decision to intubate was made. Case discussed with anesthesia who came to intubate the patient. Case also discussed with surgery concerning no change in left-sided pneumothorax. Pulmonology and surgery recommended patient to be transferred for CV surgery for VATS procedure. This was discussed in detail with CV surgery in [place]. They are willing to accept the patient. Case also discussed with familyson in detail. They understand patient condition continues to decline. Advanced directives addressed in detail with the patient. Son expressed patient had wished to be DNR. Patient made DNR at this time. Await to see if available bed for transfer. Continue current treatment at this time. Will monitor closely. Patient with acute renal failure as well. Nephrology consulted to help with this. Continue IV Solu-Medrol. Await further recommendations from pulmonology. Prognosis poor. Toxic encephalopathy related to above: Continue with above plan of care COPD: Continue COPD medication. Continue as above. HIV: Continue with HIV medication Acute renal failure: Continue IV fluids. Nephrology consulted to help assist. Paroxysmal atrial fibrillation with RVR: Patient now in sinus rhythm. We will monitor this closely. Depression with anxiety: Continue with home medication Trintellix and bupropion. Chronic pain with neuropathy: Will provide medication for pain. Continue Lyrica. DVT prophylaxis: Lovenox Code Status: Full code Advanced care planning-30 minutes: Home at discharge ICU care30 minutes Time Spent Managing Pts Care (In Minutes): 55
[2021-01-04 06:30] LABS: Absolute Lymphocytes (CBC) 0.2 K/uL (0.7-4.9); Basophils % 0.1 % (0-1.3); Lymphocytes % 1.9 % (15.3-44.8); MPV 9.6 fL (7.6-11.3); RBC Red Blood Cell Count 4.76 M/uL (3.86-4.86)
[2021-01-04 06:43] LABS: Albumin 2.8 g/dL (3.4-5.0); Bilirubin Total 0.4 mg/dL (0.2-1.0); Ferritin 289.9 ng/mL (8-388); Potassium 5.5 mmol/L (3.5-5.1); Protein, Total 6.7 g/dL (6.4-8.2)
--- NOTE | 2021-01-04 08:40 | RAD REPORT ---
EXAM DESCRIPTION: RAD - Chest Single View - 01/04/2021 8:28 am CLINICAL HISTORY: f/u pneumothorax/chest tube COMPARISON: Chest Single View dated 01/03/2021; Chest Single View dated 01/03/2021; Chest Single View da viola 01/03/2021; Chest Single View dated 12/31/2020 FINDINGS: Left-sided chest tube in similar positioning. Similar moderate left-sided pneumothorax. Ri ght subclavian approach central venous line with tip overlying the SVC. Widespread bilateral airspace disease is similar. Cardiomegaly. Subcutaneous emphysema in the left chest wall. IMPRESSION: Unchanged left-sided pneumothorax despite the presence of the chest tube. Widespread kvng ateral airspace disease is again identified and not significantly changed.
[2021-01-04] MEDS ORDERED: NALOXONE 0.4 MG/ML VIAL IV ONE (08:45)
[2021-01-04] MEDS ORDERED: BUPROPION HCL XL 150 MG TAB PO SCH (09:00)
[2021-01-04] MEDS ORDERED: EMTRICITABINE PO SCH (09:00)
[2021-01-04] MEDS ORDERED: HOME MED 1 EA UNK (Cyanocobalamin (Vitamin B-12) [Vitamin B12] 2,500 MCG Tablet) PO SCH (09:00)
[2021-01-04] MEDS ORDERED: DOLUTEGRAVIR SODIUM 50 MG PO SCH (09:00)
[2021-01-04] MEDS ORDERED: MAGNESIUM OXIDE 500 MG PO SCH (09:00)
[2021-01-04] MEDS ORDERED: TENOFOV ALAFENAM PO SCH (09:00)
[2021-01-04] MEDS ORDERED: CYANOCOBALAMIN 1,000 MCG TAB PO SCH (09:00)
[2021-01-04] MEDS: PREGABALIN 150 MG CAP PO SCH (09:00)
[2021-01-04] MEDS ORDERED: VORTIOXETINE HYDROBROMIDE 20 MG PO SCH ×2 (09:00)
[2021-01-04] MEDS ORDERED: NALOXONE 0.4 MG/ML VIAL ONE (09:06)
[2021-01-04] MEDS ORDERED: propofoL 1,000 MG/100 ML VIAL IV ONE (09:22)
[2021-01-04] MEDS: ARFORMOTEROL TARTRATE 15 MCG/2 ML VIAL.NEB NEB SCH (09:36)
[2021-01-04] MEDS ORDERED: MIDAZOLAM HCL 2 MG/2 ML INJ IV PRN (09:40)
[2021-01-04] MEDS ORDERED: LORazepam 2 MG/ML VIAL IV PRN (09:40)
[2021-01-04] MEDS ORDERED: FENTANYL CITR 100 MCG/2 ML IV PRN (09:40)
[2021-01-04] MEDS ORDERED: propofoL 1,000 MG/100 ML VIAL IV PRN (09:40)
[2021-01-04] MEDS ORDERED: HALOPERIDOL LACT 5 MG/ML INJ IV PRN (09:40)
[2021-01-04] MEDS: METHYLPREDNISOLONE 40 MG INJ IV SCH (10:21)
--- NOTE | 2021-01-04 10:21 | RAD REPORT ---
EXAM DESCRIPTION: RAD - Chest Single View - 01/04/2021 10:07 am CLINICAL HISTORY: E-tube placement COMPARISON: Chest Single View dated 01/04/2021; Chest Single View dated 01/03/2021; Chest Single View da viola 01/03/2021; Chest Single View dated 01/03/2021 FINDINGS: Interval placement of an endotracheal tube which is approximately 3 centimeters above the jens. NG tube below the level of the diaphragm. Similar size of the left-sided pneumothorax and wid espread airspace disease is similar as well. Right subclavian approach central venous line. Subcutane ous emphysema. IMPRESSION: Endotracheal tube in satisfactory position approximately 3 centimeters above the jens. NG tube below the diaphragm. Left-sided pneumothorax unchanged.
[2021-01-04] MEDS: BARICITINIB 2 MG TABLET PO SCH (12:49)
[2021-01-04 13:27] LABS: Arterial Blood Carboxyhemoglob 0.5 % (0-1.5); Blood Gas Oxyhemoglobin 92.9 % (94-97); Blood O2 Saturation 94.7 % (92-98.5)
[2021-01-04 13:31] LABS: Arterial Blood Carboxyhemoglob 0.7 % (0-1.5); Blood Gas Oxyhemoglobin 95.8 % (94-97)
[2021-01-04 16:13] VITALS: BP 149/80; TEMP 97.8
[2021-01-04] MEDS ORDERED: CISATRACURIUM INJECTION 2 MG/ML (10 ML Vial) IV PRN (16:32)
--- NOTE | 2021-01-04 17:01 | RAD REPORT ---
EXAM DESCRIPTION: [place] Single View01/04/2021 4:35 pm CLINICAL HISTORY: Hypoxia COMPARISON: January 04, 2021 FINDINGS: Moderate right pneumothorax has developed. Endotracheal tube has been placed with its tip 1 centimeter above the top of the aortic knob. Pneumomediastinum, subcutaneous emphysema and small left pneumothorax. Left chest tube in place. Diffuse bilateral pulmonary opacities. NG tube in place IMPRESSION: Moderate right pneumothorax Patient's nurse Paige's notified 4:50 p.m. January 04, 2021
--- NOTE | 2021-01-04 17:01 | P.DS ---
Admission Date: 12/31/20 Discharge Date: 01/04/21 Primary Care Provider: unknown Disposition: Discharge Condition: Reason for Admission: SOB Consultations: Pulmonary-Dr. Yuan Surgery-Dr. Morganha Nephrology-Dr. Garcia Procedures: Initial CXR: COMPARISON: December 31 TECHNIQUE: AP portable chest image was obtained 12/31/2020 4:12 pm . FINDINGS: Right subclavian central line has been placed. Tip is at the distal SVC. No pneumothorax. Left greater than right lung parenchymal opacification present similar to earlier in the day. Heart and vasculature are normal. No measurable pleural effusion and no pneumothorax. No acute bony abnormality seen. No acute aortic findings suspected. IMPRESSION: Right subclavian central line placement with tip in the distal SVC. No pneumothorax. Follow up CXR COMPARISON: December 31 TECHNIQUE: AP portable chest image was obtained 01/03/2021 8:53 am . FINDINGS: Left-sided pneumothorax is now present estimated at 40%. No tension pneumothorax findings. Dense left upper lobe consolidated parenchyma seen similar to comparison. Less prominent left lower lobe opacification stable as well. Patchy right lung parenchymal opacification similar to comparison. Right-sided Port-A-Cath has not changed position. Heart size is stable. No enlarging pleural effusion. No acute bony abnormality seen. No acute aortic findings suspected. IMPRESSION: Approximately 40% left-side pneumothorax has developed since the December 31 comparison study. Left greater than right lung parenchymal opacification not significantly different. Follow up CXR post chest tube: COMPARISON: January 03 TECHNIQUE: AP portable chest image was obtained 01/03/2021 10:18 am . FINDINGS: Chest tube has been placed entering the lower left chest and extending to the medial suprahilar region. Pneumothorax has reduced substantially but not fully resolved. Approximately 10% pneumothorax left apex remains. Subcutaneous emphysema is present. Remainder the chest has shown no slipcover cutter the short interval. IMPRESSION: Left chest tube in good position. Pneumothorax has reduced with a remnant 10% apical pneumothorax remaining. Follow up CXR after intubation: COMPARISON: Chest Single View dated 01/04/2021; Chest Single View dated 01/03/2021; Chest Single View dated 01/03/2021; Chest Single View dated 01/03/2021 FINDINGS: Interval placement of an endotracheal tube which is approximately 3 centimeters above the jens. NG tube below the level of the diaphragm. Similar size of the left-sided pneumothorax and widespread airspace disease is similar as well. Right subclavian approach central venous line. Subcutaneous emphysema. IMPRESSION: Endotracheal tube in satisfactory position approximately 3 centimeters above the jens. NG tube below the diaphragm. Left-sided pneumothorax unchanged. Medical problem list Septic shock secondary acute respiratory failure with hypercapnia related to bilateral Covid pneumonia complicated with 40% left-sided pneumothorax status post chest tube placement and further decline with right-sided pneumothorax COPD HIV Acute renal failure Paroxysmal atrial fibrillation with RVR Depression with anxiety Chronic pain with neuropathy Brief History of Present Illness: 60-year-old female with history of HIV presented to the emergency room with increasing shortness of breath. Patient was found to be hypoxic. The patient was severely ill. Patient hypotensive. Septic shock identified with acute renal failure and patient positive for Covid pneumonia. Patient was vaccinated. Hospital Course: Patient presented very ill with hypotension, hypoxemia. Patient found to have septic shock related to acute respiratory failure with hypercapnia related to bilateral Covid pneumonia. Patient was given IV fluids, vasopressor therapy and antibiotics. Acute renal failure also identified. Patient also developed atrial fibrillation. Her condition did not improve. Patient did receive IV steroids, supplementation and baricitinib. As her condition continued to decline, patient was later found to have a 40% left-sided pneumothorax. Surgery was consulted for chest tube placement. Patient did not require intubation after chest tube placement. Patient was monitored on high flow with recommendations by pulmonology. Repeat x-ray did not show any improvement. The patient was monitored closely. Her condition continued to decline. Acute respiratory failure with hypercapnia persisted. Patient was found to be acidotic with worsening renal failure again. As her condition declined patient required intubation. The patient was intubated by anesthesia. Advanced care planning was readdressed at that time with family due to her worsening condition. Son had expressed patient wanted to be DNR. She was made DNR at the time. After intubation pulmonology and surgery recommended the patient be transferred to tertiary care center for VATS procedure due to unresolved pneumothorax. Case discussed with CV surgery. CV surgery accepted. Patient continued to remain unstable for transfer. Patient continued to have hypoxemia with worsening respiratory and renal failure. Her condition did not improve. As she continued to decline repeat x- ray showed continued left-sided pneumothorax with right-sided pneumothorax as well. As the patient continue declined the patient . Patient with other medical problems including underlying COPD, HIV, paroxysmal atrial fibrillation with RVR, depression with anxiety, and chronic pain with neuropathy. Vital Signs/Physical Exam: Temp Pulse Resp BP Pulse Ox 97.8 F 105 H 17 149/80 H 94 01/04/21 16:12 01/04/21 16:12 01/04/21 16:12 01/04/21 16:12 01/04/21 16:12 Other Physical/Emotional Findings: Patient Laboratory Data at Discharge: WBC 11.90 K/uL (4.3-10.9) H D 01/04/21 06:12 Hgb 13.0 g/dL (12.0-15.0) 01/04/21 06:12 Hct 42.0 % (36.0-45.0) 01/04/21 06:12 Plt Count 127 K/uL (152-406) L D 01/04/21 06:12 PT 13.3 SECONDS (9.5-12.5) H 12/31/20 13:55 INR 1.15 12/31/20 13:55 APTT 32.3 SECONDS (24.3-36.9) 12/31/20 13:55 Sodium 145 mmol/L (136-145) 01/04/21 06:12 Potassium 5.5 mmol/L (3.5-5.1) H 01/04/21 06:12 BUN 49 mg/dL (7-18) H 01/04/21 06:12 Creatinine 1.63 mg/dL (0.55-1.3) H 01/04/21 06:12 Glucose 125 mg/dL (74-106) H 01/04/21 06:12 Phosphorus 3.2 mg/dL (2.5-4.9) 01/01/21 04:58 Magnesium 3.0 mg/dL (1.8-2.4) H D 01/04/21 06:12 Total Bilirubin 0.4 mg/dL (0.2-1.0) 01/04/21 06:12 AST 21 U/L (15-37) 01/04/21 06:12 ALT 24 U/L (12-78) 01/04/21 06:12 Alkaline Phosphatase 71 U/L (45-117) 01/04/21 06:12 Triglycerides 63 mg/dL (<150) 01/01/21 04:58 Cholesterol 70 mg/dL (<200) 01/01/21 04:58 HDL Cholesterol 57 mg/dL (40-60) 01/01/21 04:58 Cholesterol/HDL Ratio 1.23 01/01/21 04:58 Lipase 40 U/L (73-393) L 12/31/20 13:55 Home Medications: Albuterol Sulfate [Proair Respiclick] 90 mcg IN Q4H PRN 01/01/21 Bupropion *Xl* [Wellbutrin XL*] 300 mg PO DAILY 01/01/21 Calcium Carbonate 1,000 mg PO BID 01/01/21 Cholecalciferol (Vitamin D3) [Vitamin D3] 2,000 unit PO BID 01/01/21 Cyanocobalamin (Vitamin B-12) [Vitamin B12] 1,000 mcg PO DAILY 01/01/21 Dolutegravir Sodium [Tivicay] 50 mg PO DAILY 01/01/21 Emtricitabine/Tenofov Alafenam [Descovy 200-25 mg Tablet] 1 each PO DAILY 01/01/21 Furosemide 40 mg PO BID 01/01/21 Ibandronate Sodium 150 mg PO DIRECTED 01/01/21 Magnesium Oxide 800 mg PO DAILY 01/01/21 Potassium Cl [Klor-Con 8] 20 meq PO BID 01/01/21 Pregabalin [Lyrica] 300 mg PO BID 01/01/21 Salmeterol Xinafoate [Serevent Diskus] 50 mcg IH Q12H 01/01/21 Vortioxetine Hydrobromide [Trintellix] 20 mg PO DAILY 01/01/21 calcitrioL [Rocaltrol] 0.25 mcg PO M,W,F 01/01/21 Physician Discharge Instructions: Patient . May she rest in peace Followup: Unknown,U [Primary Care Provider] - Time spent managing pt's care (in minutes): 55
[2021-01-04 19:59] VITALS: O2SAT 89
--- NOTE | 2021-01-04 20:26 | P.PN ---
Subjective Date of Service: 01/04/21 Primary Care Provider: unknown Chief Complaint: REsp failure and pneumothorax Conditioned worsedn this am, resp failure Intubated/unresponsive Review of Systems is unable to be obtained Physical Examination - Vital Signs Temperature: 97.8 F Blood Pressure: 149/80 Pulse: 0 Respirations: 13 Pulse Ox (%): 77 - Physical Exam General: Comatose Other Physical/Emotional Findings: Patient Assessment & Plan - Problems (Diagnosis) (1) Pneumonia due to COVID-19 virus Current Visit: Yes Status: Acute Plan: Worsened Intubated, S/p chest tube/ Develpoed bialteral pneumothorax and / renal fucntion worse (2) Pneumothorax Current Visit: Yes Status: Acute Plan: Incomplete expansion/ Devolped another pneumothorax on left afte intubation Qualifiers: Pneumothorax type: spontaneous, secondary Qualified Code(s): J93.12 - Secondary spontaneous pneumothorax
[2021-01-04] MEDS ORDERED: FAMOTIDINE 20 MG/2 ML VIAL IV SCH (21:00)
--- NOTE | 2021-01-06 11:21 | CON ---
Date of Consultation: 01/03/2021 She was admitted to Dr. Leos. She was admitted with COVID pneumonia, HIV positive, renal failure, COPD. I saw the patient for atrial fibrillation. History Of Present Illness: Ms. Chen was 60, history of DJD, fibromyalgia, HIV and neuropathy, ad mitted with COVID pneumonia, renal failure and COPD, was being treated with inhaler, ivermectin, anti biotics as well as steroids. Continued to have worsening condition. Went into atrial fibrillation. I suggested the patient gets an echocardiogram done, to treat her atrial fibrillation with IV digoxin , IV beta blockers as tolerated, continue blood thinners and if her symptoms persist to put her on IV amiodarone. Past Medical History: As stated earlier. Allergies: NONE. Medications: Stated earlier. Review of Systems: Unobtainable. Social History: Unobtainable. Family History: Unobtainable. Physical Examination: Vital signs: The patient was in atrial fibrillation rate of 140; hypotensive, on IV Levophed. Chest: Reveals crackles throughout. Cardiac: Revealed AFib. Abdomen: Benign. Extremities: Revealed trace edema. Diagnostic Data: As stated earlier. Impression And Plan: Atrial fibrillation, rapid ventricular response secondary to COVID pneumonia, h ypotension, renal failure, Chronic obstructive pulmonary disease. I will treat her with digoxin, IV beta blockers. Continue the Levophed. Switched to amiodarone if the digoxin does not work. Obtain a 2D echocardiogram. The patient has very guarded prognosis. I will be around for questions if the need arises. JAQUI/ABEBE Voice ID: [id number] Report ID: [id number]
--- NOTE | 2021-01-10 14:56 | ECHO ---
HEIGHT: 5 ft 7 in WEIGHT: 264 lb 14.4 oz DATE OF STUDY: 01/03/[address]: Alina Johnson MD 2-DIMENSIONAL: YES M.MODE: YES DOPPLER: YES COLOR FLOW: YES TDS: NO PORTABLE: YES DEFINITY: NO BUBBLE STUDY: NO DIAGNOSIS: ATRIAL FIBRILLATION WITH RAPID VENTRICULAR RESPONSE CARDIAC HISTORY: CATHERIZATION: SURGERY: PROSTHETIC VALVE: PACEMAKER: MEASUREMENTS (cm) DIASTOLIC (NORMALS) SYSTOLIC (NORMALS) IVSd 1.2 (0.6-1.2) LA Diam 4.8 (1.9-4.0) LVEF 55-60% LVIDd 4.8 (3.5-5.7) LVIDs 3.6 (2.0-3.5) %FS 26% LVPWd 1.0 (0.6-1.2) Ao Diam 2.8 (2.0-3.7) 2 DIMENSIONAL ASSESSMENT: RIGHT ATRIUM: NORMAL LEFT ATRIUM: NORMAL RIGHT VENTRICLE: NORMAL LEFT VENTRICLE: NORMAL TRICUSPID VALVE: MILD TRICUSPID REGURGITATION MITRAL VALVE: NORMAL PULMONIC VALVE: NORMAL AORTIC VALVE: NORMAL PERICARDIAL EFFUSION: NONE AORTIC ROOT: NORMAL LEFT VENTRICULAR WALL MOTION: NORMAL. DOPPLER/COLOR FLOW: MILD TRICUSPID REGURGITATION. COMMENTS: NORMAL LEFT VENTRICULAR EJECTION FRACTION 55-60%. NORMAL WALL MOTION. RIGHT VENTRICULAR SYSOTLIC PRESSURE 38 + RIGHT ATRIAL PRESSURE. MILD TRICUSPID REGURGITATION. TECHNOLOGIST: LUKE HUDDLESTON
== END 2021-01-04 19:35 | disposition expired | DRG 871 ==
LOC: ER 13:41 → ERHOLD 17:23 → 3RD-ICU 01-01 14:17
PROVIDERS: ADMIT Hospitalist; ATTEND Hospitalist
PROC: 05H533Z Insertion of Infusion Device into Right Subclavian Vein, Percutaneous Approach (ICD-10-PCS; 2020-12-31)
PROC: 0W9B30Z Drainage of Left Pleural Cavity with Drainage Device, Percutaneous Approach (ICD-10-PCS; principal; 2021-01-03)
PROC: 0BH17EZ Insertion of Endotracheal Airway into Trachea, Via Natural or Artificial Opening (ICD-10-PCS; 2021-01-04)
PROC: 5A1935Z Respiratory Ventilation, Less than 24 Consecutive Hours (ICD-10-PCS; 2021-01-04)
DX: A41.9 Sepsis, unspecified organism (principal); R65.21 Severe sepsis with septic shock; J96.02 Acute respiratory failure with hypercapnia; U07.1 COVID-19; J12.82 Pneumonia due to coronavirus disease 2019; G92 Toxic encephalopathy; N17.9 Acute kidney failure, unspecified; J93.12 Secondary spontaneous pneumothorax; N39.0 Urinary tract infection, site not specified; J44.9 Chronic obstructive pulmonary disease, unspecified; Z21 Asymptomatic human immunodeficiency virus [HIV] infection status; I48.0 Paroxysmal atrial fibrillation; F41.8 Other specified anxiety disorders; G89.29 Other chronic pain; Z66 Do not resuscitate; Z98.84 Bariatric surgery status; Z87.891 Personal history of nicotine dependence
CPT/HCPCS: 36415; 51702; 71045; 80048; 80053; 80061; 80076; 80202; 81003; 81015; 82550; 82728; 82805; 83605; 83690; 83735; 83880; 84100; 84145; 84484; 85025; 85379; 85610; 85730; 86140; 87040; 87086; 87088; 93005; 93306; 94002; 94003; 94640; 94760; 96365; 96366; 96367; 96368; 96375; 99285; J0330; J0456; J0692; J1160; J1170; J1644; J1650; J2250; J2310; J2704; J2920; J3010; J3370; J7030; J7040; J7050; J7060; J7605; P9047; U0003